=== PATIENT | male | born 1930 | race Caucasian/White ===

== ENCOUNTER 2016-08-18 18:05 | Observation (INO) | payer MEDICARE, BC ==
[2016-08-18] MEDS ORDERED: NS 0.9% 1000 ML* 2,000 ML IV ONE (19:37)
[2016-08-18 20:00] LABS: Hematocrit 40 % (42-52); Hemoglobin 13.1 g/dl (14.0-18.0); Mean Corpuscular HGB Conc 33 g/dl (31-36); Mean Corpuscular Hemoglobin 29 pg (27-31); Mean Corpuscular Volume 87 fL (80-94); Mean Platelet Volume 8 um3 (7.4-10.4); Red Blood Count 4.59 10^6/ul (4.0-5.4); Red Cell Distribution Width 14 % (10.5-15); White Blood Count 13.8 10^3/ul (3.5-10.8)
[2016-08-18 20:05] LABS: Urine Bilirubin Negative (Negative); Urine Glucose Negative (Negative); Urine Nitrite Negative (Negative)
[2016-08-18 20:06] LABS: ALT 18 U/L (7-52); AST 18 U/L (13-39); Albumin 3.5 g/dL (3.2-5.2); Alkaline Phosphatase 65 U/L (34-104); Anion Gap 6 mmol/L (2-11); BUN/Creatinine Ratio 16.5 (8-20); Blood Urea Nitrogen 18 mg/dL (6-24); CO2 Carbon Dioxide 27 mmol/L (22-32); Calcium 8.7 mg/dL (8.6-10.3); Chloride 103 mmol/L (101-111); Creatine Kinase 82 U/L (10-223); EGFR African American 82.9 (>60); EGFR Non-African American 64.4 (>60); Glucose 119 mg/dL (70-100); Potassium 3.7 mmol/L (3.5-5.0); Sodium 136 mmol/L (133-145); Total Protein 6.5 g/dL (6.4-8.9)
[2016-08-18 20:08] LABS: Troponin I 0.02 ng/mL (<0.04)
--- NOTE | 2016-08-18 20:23 | RAD ---
INDICATION: Altered mental status. Headaches. COMPARISON: CT brain November 29, 2014 TECHNIQUE: Noncontrast axial source images were acquired from the skull base to the vertex. FINDINGS: Ventricles/sulci: There is cortical atrophy with compensatory dilatation of the CSF spaces. Brain parenchyma: There is periventricular and subcortical white matter change compatible with chronic ischemia. Intracranial hemorrhage:None. Extra-axial spaces: There are no abnormal extra axial fluid collections or evidence of extra-axial mass. Calvarium: There is no calvarial fracture or other calvarial abnormality. Scalp: There is no evidence of scalp or extracalvarial soft tissue abnormality. Paranasal sinuses/mastoid: There is chronic sinus disease in the right maxillary antrum, unchanged. The remaining visualized paranasal sinuses and the mastoid air cells appear normal. Other: None. IMPRESSION: CORTICAL ATROPHY WITH CHRONIC MICROVASCULAR ISCHEMIC CHANGES. NO ACUTE FINDINGS.
[2016-08-18 20:30] LABS: Alcohol < 10 mg/dL (<10)
--- NOTE | 2016-08-18 20:41 | RAD ---
INDICATION: Short of breath. Cough. Pneumonia COMPARISON: Chest x-ray November 29, 2014 TECHNIQUE: AP seated and lateral views were obtained. FINDINGS: Bones/Soft Tissues: There are no acute bony findings. Cardiomediastinal: The cardiomediastinal silhouette is normal. Lungs: There are no infiltrates. Pleura: There are no pleural effusions. Other: None IMPRESSION: NO ACTIVE DISEASE.
[2016-08-18 22:17] LABS: C Reactive Protein 91.97 mg/L (< 5.00)
--- NOTE | 2016-08-18 22:57 | ED ---
Jacqueline Adair Claudia, scribed for Tono Fernandez MD on 08/18/16 at 1857 . Complex/Multi-Sys Presentation - HPI Summary HPI Summary: 86 year old male presents to the ED with AMS. His son states that he had trouble understanding him earlier today. The pt seemed to be saying words that were jumbled. Pt son denies pt having any previous difficulty with speech but does note he sometimes has some difficulty with memory. Son notes it seems like he is having difficulty findings words. Pt states correct birthdate and current location but is unable to state his PCP and he notes he is usually able to know that. Pt son states he is normally more with it with responding to questions. Pt denies any cough, visual changes, abd pain. Pt does admit to some SOB and pain over his kidneys. Pt son notes that he was shivering earlier. Son is unable to notice any weakness with ambulation since he did not walk today. It is also noted that he is having some difficulty urinating with the need to go. Level 5 caveat- AMS - History Of Current Complaint Chief Complaint: EDAltMentalStatus Hx Obtained From: Patient, Family/Civil Engineering Specialist Onset/Duration: Sudden Onset, Lasting Hours, Still Present Timing: Constant Associated Signs And Symptoms: Positive: Confusion, SOB, Fever, Other - difficulty urinating. Negative: Cough - Allergies/Home Medications Allergies/Adverse Reactions: Allergies Allergy/AdvReac Type Severity Reaction Status Date / Time Hydrocodone Allergy ANXIOUS Verified 08/18/16 19:14 Metoprolol [From Toprol XL] Allergy ANXIOUS Verified 08/18/16 19:14 Amlodipine [From Norvasc] AdvReac Mild anxious Verified 08/18/16 19:14 Home Medications: Home Medications Aspirin [Aspirin 81 MG TAB] 81 mg PO DAILY 08/18/16 [History Confirmed 08/18/16] Fluticasone Propionate (Nasal) [Allergy Nasal [place] 24 Ho] 50 mcg NA 08/18/16 [ History] Potassium Chloride Microencaps [Klor-Con M20] 20 meq PO DAILY 08/18/16 [History Confirmed 08/18/16] PMH/Surg Hx/FS Hx/Imm Hx Previously Healthy: Yes Endocrine/Hematology History: Reports: Hx Diabetes - borderline Cardiovascular History: Reports: Hx Coronary Artery Disease, Hx Hypercholesterolemia, Hx Hypertension, Hx Syncope Denies: Hx Congestive Heart Failure, Hx Pacemaker/ICD GI History: Reports: Hx Diverticulosis, Hx Gastroesophageal Reflux Disease Denies: Other GI Disorders History: Reports: Hx Benign Prostatic Hyperplasia, Hx Kidney Stones Denies: Hx Dialysis, Hx Renal Disease Comment Only: Other Problems/Disorders - prostate ca Musculoskeletal History: Reports: Hx Back Problems - lumbago Sensory History: Reports: Hx Contacts or Glasses Denies: Hx Hearing Aid Opthamlomology History: Reports: Hx Contacts or Glasses Psychiatric History: Denies: Hx Panic Disorder - Cancer History Cancer Type, Location and Year: PROSTATE - Surgical History Surgery Procedure, Year, and Place: melanoma removed left cheek, staple removed hand, tonsillectomy Infectious Disease History: Denies: Traveled Outside the [place] in Last 30 Days - Social History Alcohol Use: None Substance Use Type: Reports: None Smoking Status (MU): Former Smoker Type: Cigarettes Have You Smoked in the Last Year: No Review of Systems Positive: Fever, Chills Eyes: Negative ENT: Negative Cardiovascular: Negative Positive: Shortness Of Breath. Negative: Cough Genitourinary: Negative Musculoskeletal: Negative Skin: Negative Positive: Headache. Negative: Weakness, Slurred Speech Psychological: Normal All Other Systems Reviewed And Are Negative: No Physical Exam - Summary Physical Exam Summary: The patient is well-nourished in no acute distress and in no acute pain. Pallor The skin is warm and dry and skin color reflects adequate perfusion. HEENT: The head is normocephalic and atraumatic. The pupils are equal and reactive. No rhinorrhea . The conjunctivae are clear and without drainage. Mouth reveals moist mucous membranes and the throat is without erythema and exudate. Neck is supple with full range of motion and non-tender. There are no carotid bruits. There is no neck vein distension. Respiratory: Chest is non-tender. Lungs are clear to auscultation and breath sounds are symmetrical and equal.No rales, rhonchi or wheezing. Cardiovascular: Hear is regular rate and rhythm. There is no murmur or rub auscultated. There is no peripheral edema and pulses are symmetrical and equal. Abdomen: The abdomen is soft and non-tender. There are normal bowel sounds heard in all four quadrants and there is no organomegaly palpated. Musculoskeletal: There is no back pain noted. Extremities are non-tender with full range of motion. There is good capillary refill. There is no peripheral edema or calf tenderness elicited. Neurological: Patient is alert and oriented to place. The patient has symmetrical motor strength in all four extremities. Cranial nerves2-12 are grossly intact. Deep tendon reflexes are symmetrical and equal in all four extremities. Heel to dougherty and finger to nose are able produce without difficulty. Negative babinsky. Trouble recalling events. Negative pronator drift in UE sand LE. Psychiatric: The patient has an appropriate affect and does not exhibit any anxiety or depression. Triage Information Reviewed: Yes Vital Signs On Initial Exam: Initial Vitals Temp Pulse Resp BP Pulse Ox 99.4 F 96 18 143/74 98 08/18/16 18:15 08/18/16 18:15 08/18/16 18:15 08/18/16 18:15 08/18/16 18:15 Vital Signs Reviewed: Yes - Lizett Coma Scale Coma Scale Total: 15 Diagnostics - Vital Signs Vital Signs Temp Pulse Resp BP Pulse Ox 08/18/16 18:15 99.4 F 96 18 143/74 98 - Laboratory Lab Results: Lab Results 08/18/16 08/18/16 08/18/16 Range/Units 19:40 19:40 19:40 WBC 13.8 H (3.5-10.8) 10^3/ul RBC 4.59 (4.0-5.4) 10^6/ul Hgb 13.1 L (14.0-18.0) g/dl Hct 40 L (42-52) % MCV 87 (80-94) fL MCH 29 (27-31) pg MCHC 33 (31-36) g/dl RDW 14 (10.5-15) % Plt Count 168 (150-450) 10^3/ul MPV 8 (7.4-10.4) um3 Neut % (Auto) 81.0 (38-83) % Lymph % (Auto) 8.2 L (25-47) % [place] % (Auto) 9.7 H (1-9) % Eos % (Auto) 0.6 (0-6) % Baso % (Auto) 0.5 (0-2) % Absolute Neuts (auto) 11.2 H (1.5-7.7) 10^3/ul Absolute Lymphs (auto) 1.1 (1.0-4.8) 10^3/ul Absolute Monos (auto) 1.3 H (0-0.8) 10^3/ul Absolute Eos (auto) 0.1 (0-0.6) 10^3/ul Absolute Basos (auto) 0.1 (0-0.2) 10^3/ul Absolute Nucleated RBC 0.01 10^3/ul Nucleated RBC % 0.1 INR (Anticoag Therapy) (0.89-1.11) Sodium 136 (133-145) mmol/L Potassium 3.7 (3.5-5.0) mmol/L Chloride 103 (101-111) mmol/L Carbon Dioxide 27 (22-32) mmol/L Anion Gap 6 (2-11) mmol/L BUN 18 (6-24) mg/dL Creatinine 1.09 (0.67-1.17) mg/dL Est GFR ( Amer) 82.9 (>60) Est GFR (Non-Af Amer) 64.4 (>60) BUN/Creatinine Ratio 16.5 (8-20) Glucose 119 H (70-100) mg/dL Lactic Acid 1.0 (0.5-2.0) mmol/L Calcium 8.7 (8.6-10.3) mg/dL Total Bilirubin 1.10 H (0.2-1.0) mg/dL AST 18 (13-39) U/L ALT 18 (7-52) U/L Alkaline Phosphatase 65 (34-104) U/L Total Creatine Kinase 82 (10-223) U/L Troponin I 0.02 (<0.04) ng/mL C-Reactive Protein 91.97 H (< 5.00) mg/L Total Protein 6.5 (6.4-8.9) g/dL Albumin 3.5 (3.2-5.2) g/dL Globulin 3.0 (2-4) g/dL Albumin/Globulin Ratio 1.2 (1-3) Urine Color Urine Appearance Urine pH (5-9) Ur Specific [place] (1.010-1.030) Urine Protein (Negative) Urine Ketones (Negative) Urine Blood (Negative) Urine Nitrate (Negative) Urine Bilirubin (Negative) Urine Urobilinogen (Negative) Ur Leukocyte Esterase (Negative) Urine Glucose (Negative) Urine Ascorbic Acid (Negative) Serum Alcohol < 10 (<10) mg/dL 08/18/16 08/18/16 Range/Units 19:40 19:50 WBC (3.5-10.8) 10^3/ul RBC (4.0-5.4) 10^6/ul Hgb (14.0-18.0) g/dl Hct (42-52) % MCV (80-94) fL MCH (27-31) pg MCHC (31-36) g/dl RDW (10.5-15) % Plt Count (150-450) 10^3/ul MPV (7.4-10.4) um3 Neut % (Auto) (38-83) % Lymph % (Auto) (25-47) % [place] % (Auto) (1-9) % Eos % (Auto) (0-6) % Baso % (Auto) (0-2) % Absolute Neuts (auto) (1.5-7.7) 10^3/ul Absolute Lymphs (auto) (1.0-4.8) 10^3/ul Absolute Monos (auto) (0-0.8) 10^3/ul Absolute Eos (auto) (0-0.6) 10^3/ul Absolute Basos (auto) (0-0.2) 10^3/ul Absolute Nucleated RBC 10^3/ul Nucleated RBC % INR (Anticoag Therapy) 1.11 (0.89-1.11) Sodium (133-145) mmol/L Potassium (3.5-5.0) mmol/L Chloride (101-111) mmol/L Carbon Dioxide (22-32) mmol/L Anion Gap (2-11) mmol/L BUN (6-24) mg/dL Creatinine (0.67-1.17) mg/dL Est GFR ( Amer) (>60) Est GFR (Non-Af Amer) (>60) BUN/Creatinine Ratio (8-20) Glucose (70-100) mg/dL Lactic Acid (0.5-2.0) mmol/L Calcium (8.6-10.3) mg/dL Total Bilirubin (0.2-1.0) mg/dL AST (13-39) U/L ALT (7-52) U/L Alkaline Phosphatase (34-104) U/L Total Creatine Kinase (10-223) U/L Troponin I (<0.04) ng/mL C-Reactive Protein (< 5.00) mg/L Total Protein (6.4-8.9) g/dL Albumin (3.2-5.2) g/dL Globulin (2-4) g/dL Albumin/Globulin Ratio (1-3) Urine Color Yellow Urine Appearance Clear Urine pH 7.0 (5-9) Ur Specific [place] 1.016 (1.010-1.030) Urine Protein Negative (Negative) Urine Ketones 2+ H (Negative) Urine Blood Negative (Negative) Urine Nitrate Negative (Negative) Urine Bilirubin Negative (Negative) Urine Urobilinogen Negative (Negative) Ur Leukocyte Esterase Negative (Negative) Urine Glucose Negative (Negative) Urine Ascorbic Acid * H (Negative) Serum Alcohol (<10) mg/dL Result Diagrams: 08/18/16 19:40 08/18/16 19:40 Lab Statement: Any lab studies that have been ordered have been reviewed, and results considered in the medical decision making process. - Radiology CXR Xray Interpretation: No Acute Changes - NO ACTIVE DISEASE Radiology Interpretation Completed By: Radiologist - CT BRAIN CT CT Interpretation: No Acute Changes - CORTICAL ATROPHY WITH CHRONIC MICROVASCUALR ISCHEMIC CHANGES. NO ACUTE FINDINGS CT Interpretation Completed By: Radiologist [employer] - NIH Scale Level of Consciousness: Alert/Keenly Responsive Ask Patient the Month and His/Her Age: Both Correct Ask Pt to Open/Close Eyes and Fiber Optic Assembly Worker/Release Non-Paretic Hand: Both Correctly Best Gaze (Only Horizontal Eye Movement): Normal Visual Field Testing: No Visual Loss Facial Paresis-Pt to Smile & Close Eyes or Grimace Symmetry: Normal/Symmetrical Motor Function - Right Arm: No Drift-Holds 10 Seconds Motor Function - Left Arm: No Drift-Holds 10 Seconds Motor Function - Right Leg: No Drift-Holds 10 Seconds Motor Function - Left Leg: No Drift-Holds 10 Seconds Limb Ataxia-Must be out of Proportion to Weakness Present: Absent Sensory (Use Pinprick to Test Arms/Legs/Trunk/Face): Normal Best Language (Describe Picture, Name Items): No Aphasia Dysarthria (Read Several Words): Slurs Some Words Extinction and Inattention: No Abnormality Total Score: 1 Re-Evaluation - Re-Evaluation 1 Re-Evaluation Time: 21:10 Comment: Lab results and imaging are discussed with pt. Admission for observation and MRI in the morning is discussed with pt whom is agreeable with the plan. Complex Multi-Symp Course/Dx Assessment/Plan: PT PRESENTS WITH DIFFICULTY ARTICULATING, CONFUSION AND CHILLS , CONCERNS FOR AL, PNEUMONIA, UTI AND TIA. PT WAS HYDRATED AND FELT BETER. REVIEWED OLD RECORDS. WILL ADMIT PT FOR FURTHER WORK-UP. - Diagnoses Differential Diagnoses/HQI/PQRI: CVA, Metabolic Abnormality, Urinary Tract Infection, Other - pneumonia, tia, dehydration Provider Diagnoses: TIA (transient ischemic attack), Altered mental status - Physician Notifications Discussed Care Of Patient With: Discussed care of pt with Dr. Underwood whom recomends admit for MRI in the am Time Discussed With Above Provider: 21:06 Instructed by Provider To: Admit As Observation Discharge - Discharge Plan Condition: Stable Disposition: [facility] The documentation as recorded by the Jacqueline kilpatrick Claudia accurately reflects the service I personally performed and the decisions made by me, Tono Fernandez MD.
[2016-08-19] MEDS: NS 0.9% 1000 ML* 1,000 ML IV SCH ×2 (00:17→08:19)
[2016-08-19 00:42] LABS: Magnesium 1.7 mg/dL (1.9-2.7)
[2016-08-19 00:53] LABS: TSH (Thyroid Stimulating Horm) 2.17 mcIU/mL (0.34-5.60)
--- NOTE | 2016-08-19 02:25 | HP ---
HOSPITAL MEDICINE HISTORY AND PHYSICAL: DATE OF ADMISSION: 08/18/16 PRIMARY CARE PHYSICIAN: Dr. Rich. ATTENDING PHYSICIAN: Dr. Alex Underwood* (dictation provided by Toya Wong NP). CHIEF COMPLAINT: Confusion and difficulty finding words. HISTORY OF PRESENT ILLNESS: Mr. Sanchez is an 86-year-old male with a past medical history of coronary artery disease, hyperlipidemia, hypertension, atrial fibrillation, GI bleed in 2013 and history of diabetes, currently controlled with diet who presented to the hospital today with concern for 2 to 3 days of feeling unwell and then being confused and having word finding difficulties today. Mr. Sanchez states that he had 2 to 3 days where he just did not feel well. He has had a difficulty characterizing how he was feeling for me. He does endorse arthralgias and myalgias. He states he has chills at night. He had no cough. He did not think he actually had a fever. He has no chest pain, no shortness of breath. He has no nausea or abdominal pain. He has had some mild constipation. He has been urinating normally. His grew concerned about him today because he "was not acting like himself." She called the son who came over to see him. The son, who is at the bedside [facility], could not understand the patient's speech. Patient was having difficulty finding words and saying words incorrectly. Therefore he was brought to the emergency room. In the emergency room, Mr. Sanchez continues to have some confusion, though it seems to have improved. He is able to speak clearly, but he does have difficulty finding words and trails off during conversation frequently. He appears to not have any focal neurological deficits. His labs show an elevated white blood cell count of 13.8. His CRP is elevated at 91.97. PAST MEDICAL HISTORY: 1. Coronary artery disease. 2. Hyperlipidemia. 3. Hypertension. 4. Atrial fibrillation, not on anticoagulation. 5. GI bleed in 2013. 6. History of diabetes. Last HgbA1c 2 years ago 6.7. 7. BPH. 8. Renal stones. MEDICATIONS: 1. Calcium carbonate with vitamin D 660 mg p.o. b.i.d. 2. Cranberry with vitamin C and vitamin E 1 cap p.o. daily. 3. Digestive enzyme 1 cap p.o. with meals. 4. Fluticasone propionate 50 mcg nasally. 5. Prostate Health 1 cap p.o. daily. 6. Multivitamin with mineral 1 tab p.o. b.i.d. 7. Nitroglycerin p.r.n. 8. Nutritional Cardio Complete 1 cap p.o. b.i.d. 9. Bee-3 fatty acid 1 cap p.o. b.i.d. 10. Ailyn-Q 1 cap p.o. daily. 11. Selenium 100 mcg p.o. daily. 12. Aspirin 81 mg p.o. daily. 13. Atorvastatin 10 mg p.o. q.p.m. 14. Finasteride 5 mg p.o. daily. 15. Metoprolol succinate 12.5 mg p.o. daily. 16. Omeprazole 20 mg p.o. daily. 17. Potassium chloride 20 mEq p.o. daily. 18. Tamsulosin 0.4 mg p.o. b.i.d. ALLERGIES: Stated to HYDROCODONE, METOPROLOL and AMLODIPINE, although the patient is currently on metoprolol. Allergy to METOPROLOL is listed as anxiety. FAMILY HISTORY: Unobtainable tonight. SOCIAL HISTORY: There is report that the patient was a smoker and he quit 40 years ago and he smoked for about 10 years. 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 REVIEW OF SYSTEMS: A 14-point review of systems was completed with Mr. Sanchez and all those not mentioned above were negative. PHYSICAL EXAMINATION GENERAL: Mr. Sanchez is sitting up in the bed, he is in no acute distress. VITAL SIGNS: Temperature 99.4, heart rate 83, respiratory rate 14, O2 saturation 100% on room air, blood pressure 157/82. LUNGS: Clear to auscultation bilaterally with no accessory muscle use and good aeration. HEART: S1 and S2. No murmur, rub, or gallop, and regular. ABDOMEN: Soft and nontender with bowel sounds positive x4. EXTREMITIES: No cyanosis or edema. NEURO: He is alert. He is oriented x3. He moves all extremities equally. There is no pronator drift. Has good sensation throughout all 4 extremities. Extraocular movements are intact. Face is symmetrical. His speech is clear but slow. He pauses and is unable to come up with words. He answers appropriately at times but will when unable to find a word he will repeat phrases. SKIN: Intact. DIAGNOSTIC STUDIES/LAB DATA: Sodium 136, potassium 3.7, chloride 103, serum bicarbonate 27, BUN 18, creatinine 1.09, glucose 119, CRP 91.97. WBC 13.8, hemoglobin 13.1, hematocrit 40, platelet count 168. Urine shows no evidence of infection. Toxicology screening shows negative alcohol level. Chest x-rays shows no acute process. CT of brain shows no acute process. ASSESSMENT: Mr. Sanchez is an 86-year-old male with a past medical history of coronary artery disease, hypertension, hyperlipidemia, and atrial fibrillation, not on anticoagulation who presents to the hospital with concern for confusion, difficulty word finding, and altered speech. In the emergency room, his symptoms have improved though he continues to have difficulty with word finding. Our plans are for observation in the hospital for the following. 1. Difficulty with word finding and altered speech pattern: The patient appears to have an acute viral illness. His white blood cell count is elevated. His CRP is elevated. He describes 2 to 3 days of not feeling well. However, his family states he was acting odd and his son very clearly notes that the patient was having difficulty with word finding and perhaps having slurred speech. This seems to have improved in the emergency room. Although I think that perhaps this is all related to acute viral illness in an elderly gentleman with baseline cortical atrophy and chronic microvascular ischemic changes which had been noted on the CT of the brain tonight, I think that he warrants investigation for a transient ischemic attack. The patient has had the CT brain. He will have an MRI of the brain and transthoracic echocardiogram, telemetry monitoring and and neurological checks q.4 hours. If the MRI of the brain is positive, Neurology will be consulted. Again, my high suspicion is that this is related to viral illness, but stroke is high on the differential based on his abnormal speech and therefore I think he deserves further workup. 2. Viral illness: The patient has no infiltrative process noted on the chest x - ray. He has no evidence of urinary tract infection. I suspected that his symptoms are related to a viral illness. He has been hydrated in the emergency room. We will continue with IV hydration overnight. We will recheck all his labs tomorrow. He has had blood cultures. His lactic acid is normal. Plan to monitor closely and if he develops any sign of more focal infection or bacterial infection, antibiotics can be initiated at that point. 3. Benign prostatic hypertrophy: Continue tamsulosin. 4. History of hypertension: Continue low dose metoprolol. 5. DVT prophylaxis with heparin subcu. 6. Disposition to telemetry floor. TIME SPENT: Approximately 60 minutes were spent on the admission of this patient, more than half the time was spent with the patient at the bedside reviewing the events leading up to this hospitalization, performing the physical examination, and reviewing the plan of care. TOYA WONG NP CC: Dr. Rich* [id number]/[facility] #: [id number] RUBEN
[2016-08-19 05:49] LABS: Hematocrit 38 % (42-52); Hemoglobin 12.4 g/dl (14.0-18.0); Mean Corpuscular HGB Conc 33 g/dl (31-36); Mean Corpuscular Hemoglobin 28 pg (27-31); Mean Corpuscular Volume 87 fL (80-94); Mean Platelet Volume 8 um3 (7.4-10.4); Red Blood Count 4.35 10^6/ul (4.0-5.4); Red Cell Distribution Width 14 % (10.5-15); White Blood Count 13.8 10^3/ul (3.5-10.8)
[2016-08-19] MEDS ORDERED: Heparin VIAL(*) 5000 UNITS/ML VIAL (FIVE THOUSAND) SUBCUT SCH (06:00)
[2016-08-19 06:04] LABS: BUN/Creatinine Ratio 15.7 (8-20); EGFR African American 89.5 (>60); EGFR Non-African American 69.6 (>60); Potassium 3.7 mmol/L (3.5-5.0)
[2016-08-19] MEDS ORDERED: Potassium Chlor TAB* 20 MEQ TAB.ER PO SCH (09:00)
[2016-08-19] MEDS ORDERED: Metoprolol Succinate XL TAB* 25 MG PO SCH (09:00)
[2016-08-19] MEDS ORDERED: Omeprazole CAP* 20 MG PO SCH (09:00)
[2016-08-19] MEDS ORDERED: Tamsulosin CAP* 0.4 MG PO SCH (09:00)
[2016-08-19] MEDS ORDERED: Aspirin EC Low Dose* 81 MG TAB.EC PO SCH (09:00)
[2016-08-19] MEDS ORDERED: Finasteride TAB* 5 MG PO SCH (09:00)
--- NOTE | 2016-08-19 11:09 | ECHO ---
Patient: KAMRAN MART [facility] Rec#: [id number] : 1930 Date: 08/19/2016 Age: 86y Height: 170.2 cm / 67.0 in Weight: 86.2 kg / 190.0 lbs Sex: M BSA: 2 Room#: [facility] Admit Date#: 08/18/2016 Type: Inpatient Referring: Toya Wong NP Reading: Maine Collado MD Signal Maintenance Technician: Malia Montgomery RN RDCS CC: Mitch Rich MD Transthoracic Echocardiogram Indication: TIA BP: 143/66 HR: 79 Rhythm: NSR Findings History: CAD, HTN, HLD, A. fib, GI bleed, DM Technical Comments: The study quality is fair. Completed at 1050. Left Ventricle: The left ventricular chamber size is normal. Mild to moderate concentric left ventricular hypertrophy is observed. Global left ventricular wall motion and contractility are within normal limits. There is normal left ventricular systolic function. The estimated ejection fraction is 55-60%. Abnormal left ventricular diastolic filling is observed, consistent with impaired relaxation. Left Atrium: The left atrium is slightly dilated. Right Ventricle: The right ventricular chamber size and systolic function are within normal limits. Right Atrium: The right atrium is slightly dilated. There is evidence of an atrial septal aneurysm. Aortic Valve: The aortic valve is trileaflet. The aortic valve leaflets are mildly thickened. There is aortic annular calcification. There is no evidence of aortic regurgitation. There is no evidence of aortic stenosis. Mitral Valve: There is mitral annular calcification. The mitral valve leaflets are mildly thickened. There is mild mitral regurgitation. There is no evidence of mitral stenosis. Tricuspid Valve: The tricuspid valve leaflets are normal. There is mild tricuspid regurgitation. There is evidence of moderate pulmonary hypertension. There is no tricuspid stenosis. Pulmonic Valve: The pulmonic valve appears normal. There is a trace pulmonic regurgitation. There is no pulmonic stenosis. Pericardium: There is no significant pericardial effusion. A pericardial fat pad is visualized. Aorta: There is mild dilatation of the ascending aorta. The aortic arch is not well visualized. The aortic root is normal in size. Pulmonary Artery: The main pulmonary artery appears normal. Venous: The inferior vena cava is dilated. There is an approximate 50% respiratory change in the inferior vena cava dimension. Summary: There are changes noted when compared to the previous study done on 11/30/2014, PHTN is now moderate instead of mild then. Mildly dilated ascending aorta is new instead of no comment then. Conclusions Mild to moderate concentric left ventricular hypertrophy is observed. There is normal left ventricular systolic function. The estimated ejection fraction is 55-60%. The left atrium is slightly dilated. The right atrium is slightly dilated. There is mild mitral regurgitation. There is mild tricuspid regurgitation. There is a trace pulmonic regurgitation. A pericardial fat pad is visualized. There is no significant pericardial effusion. There is mild dilatation of the ascending aorta. There is evidence of moderate pulmonary hypertension. Measurements Name Value Normal Range RVDdMajor (2D) 4.1 cm (2.2 - 4.4) RAd ISD 4CH 5 cm (3.4 - 4.9) RA (A4C)W 4.3 cm (2.9 - 4.6) IVSd (2D) 1.3 cm (0.6 - 1) LVPWd (2D) 1.2 cm (0.6 - 1) LVIDd (2D) 4.3 cm (3.6 - 5.4) LVIDs (2D) 2.7 cm - LV FS (2D) 36 % (25 - 45) Aortic Annulus 2.2 cm (1.4 - 2.6) Ao root diameter (2D) 3.4 cm (2.1 - 3.5) Ascending Ao 3.5 cm (2.1 - 3.4) LA dimension (AP) 2D 3.9 cm (2.3 - 3.8) LAd ISD 4CH 4.9 cm (2.9 - 5.3) LA ISD 4CH W 3.9 cm (2.5 - 4.5) Name Value Normal Range LA ESV SP 4CH (A/L) 51 ml - LA ESV SP 2CH (A/L) 69 ml - LA ESV BP (A/L) 62 ml - LA ESV BP (A/L) index 31 ml/m2 - LA ESV SP 4CH (MOD) 48 ml - LA ESV SP 2CH (MOD) 63 ml - Name Value Normal Range MV E-wave Vmax 1.1 m/sec - MV deceleration time 219 msec - MV A-wave Vmax 1.6 m/sec - MV E:A ratio 0.7 ratio - LV septal e' Vmax 0.06 m/sec - LV lateral e' Vmax 0.06 m/sec - LV E:e' septal ratio 18.3 ratio - LV E:e' lateral ratio 18.3 ratio - Name Value Normal Range AV Vmax 1.7 m/sec - AV VTI 35.6 cm - AV peak gradient 11 mmHg - AV mean gradient 7 mmHg - LVOT Vmax 1 m/sec - LVOT VTI 20.6 cm - LVOT peak gradient 4 mmHg - LVOT mean gradient 2 mmHg - Name Value Normal Range MV Vmax 1.4 m/sec - MV VTI 36 cm - MV peak gradient 7.4 mmHg - MV mean gradient 3.5 mmHg - MV PHT 58 msec - MVA (PHT) 3.8 cm2 - Name Value Normal Range TR Vmax 3.1 m/sec - TR peak gradient 38 mmHg - RAP 15 mmHg - RVSP 53 mmHg - IVC diameter 2.2 cm - Name Value Normal Range PV Vmax 0.89 m/sec -
--- NOTE | 2016-08-19 11:34 | RAD ---
Indication: Stroke. Sagittal and axial T1, axial T2, FLAIR, diffusion and susceptibility weighted images of the brain were obtained. Ventricular structures are midline. No midline shift is noted. Central and cortical atrophy is noted. There is no evidence of intracranial mass or hemorrhage. No other high or low signal lesions are identified. Mastoid air cells and paranasal sinuses are otherwise unremarkable. Diffusion-weighted images demonstrates no restriction of diffusion. FLAIR images demonstrates periventricular signal abnormalities consistent with chronic ischemic White matter change. Brainstem and posterior fossa are otherwise unremarkable. Paranasal sinuses demonstrates mucous retention cyst in the floor of the right maxillary sinus. Mastoid air cells are unremarkable. IMPRESSION: CHRONIC ISCHEMIC WHITE CHANGE. NO ACUTE CHANGES OR RESTRICTION OF DIFFUSION IS IDENTIFIED. MUCOUS RETENTION CYST RIGHT MAXILLARY SINUS. AGE-RELATED ATROPHY.
[2016-08-19 12:09] VITALS: BP 136/71
--- NOTE | 2016-08-19 12:30 | PN ---
Subjective Date of Service: 08/19/16 Interval History: Patient seen and examined at bedside. Denies fever, chills, lightheadedness, dizziness, shortness of breath, chest discomfort, N/V/D or weakness. Feels that his speech is at baseline. Tele: Sinus rhythm with 1 degree block, rate 80's. Family History: Unchanged from Admission Social History: Unchanged from Admission Past Medical History: Unchanged from Admission Objective Active Medications: Aspirin (Aspirin Ec Low Dose*) 81 mg PO DAILY [facility] Atorvastatin Calcium (Lipitor*) 10 mg PO QPM [facility] Finasteride (Proscar Tab*) 5 mg PO DAILY [facility] Heparin Sodium (Porcine) (Heparin Vial(*)) 5,000 units SUBCUT Q8HR [facility] Sodium Chloride (Ns 0.9% 1000 Ml*) 1,000 mls @ 125 mls/hr IV PER RATE [facility] Metoprolol Succinate (Toprol Xl Tab*) 12.5 mg PO DAILY [facility] Omeprazole (Prilosec Cap*) 20 mg PO DAILY [facility] Potassium Chloride (Klor Con Er Tab*) 20 meq PO DAILY [facility] Tamsulosin HCl (Flomax Cap*) 0.4 mg PO BID [facility] Vital Signs 08/18/16 08/18/16 08/19/16 22:00 22:36 03:56 Temperature 99.2 F 98.5 F Pulse Rate 95 84 Respiratory 14 18 16 Rate Blood Pressure 147/77 168/80 143/66 (mmHg) O2 Sat by Pulse 100 96 Oximetry 08/19/16 08/19/16 08/19/16 06:39 07:31 12:00 Temperature 98.5 F 99.0 F Pulse Rate 76 76 Respiratory 16 18 20 Rate Blood Pressure 121/67 136/71 (mmHg) O2 Sat by Pulse 100 98 Oximetry Oxygen Devices in Use Now: None Appearance: NAD, laying in bed Eyes: No Scleral Icterus Respiratory: Symmetrical Chest Expansion and Respiratory Effort, Clear to Auscultation Cardiovascular: NL Sounds; No Murmurs; No JVD, RRR Abdominal: NL Sounds; No Tenderness; No Distention Extremities: No Edema Skin: No Rash or Ulcers Neurological: Alert and Oriented x 3, NL Muscle Strength and Tone Lines/Tubes/Other Access: Clean, Dry and Intact Peripheral IV - site benign Nutrition: Taking PO's Result Diagrams: 08/19/16 05:35 08/19/16 05:35 Additional Lab and Data: Assess/Plan/Problems-Billing Assessment: Mr. Sanchez is an 86 yo male with PMH significant for CAD, HLD, HTN, Afib, DM and BPH who presented to the emergency room with concern for not feelilng well for a few days and having confusion and word finding difficulties. - Patient Problems (1) Word finding difficulty Code(s): R47.89 - OTHER SPEECH DISTURBANCES SNOMED Code(s): 682855050 Comment: - Suspect this is related to his viral illness and not a TIV or CVA. - Per Pt his speech is at baseline and is is no longer having difficulty finding words. - CT brain - baseline cortical atrophy and chronic microvasculr ischemic changes - Echo - mild concentric LVH, EF 55-60%, moderate pulmonary HTN. - MRI brain - chronic ischemic white change. No acute changes. (2) Viral illness Comment: - No signs of UTI or active disease on chest xray - No need for ABX - Supportive care (3) Type 2 diabetes mellitus Comment: - Last 08/2014 - HgA1C 6.7 - Not currentley on medications (4) History of BPH Code(s): Z87.438 - PERSONAL HISTORY OF OTHER DISEASES OF MALE GENITAL ORGANS SNOMED Code(s): 779497107 Comment: - Continue tamsulosin and finasteride (5) History of hypertension Code(s): Z86.79 - PERSONAL HISTORY OF OTHER DISEASES OF THE CIRCULATORY SYSTEM SNOMED Code(s): 436468284 Comment: - Continue metoprolol (6) DVT prophylaxis Code(s): TOU3825 - SNOMED Code(s): 074572838 (7) Patient is full code Code(s): Z78.9 - OTHER SPECIFIED HEALTH STATUS SNOMED Code(s): 469968828 Status and Disposition: OBV. Stable for discharge to home.
[2016-08-19] MEDS ORDERED: Atorvastatin* 10 MG TAB PO SCH (18:00)
--- NOTE | 2016-08-19 21:02 | PN ---
Progress Note - Progress Note Note: One blood culture positive resembling staph but staph aureus neg. Likely contaminant.
--- NOTE | 2016-08-20 08:31 | DS ---
DISCHARGE SUMMARY: DATE OF ADMISSION: 08/18/16 DATE OF DISCHARGE: 08/19/16 ATTENDING PHYSICIAN: Zander Carrillo MD* (dictated by Chip Alvarez NP) PRIMARY CARE PROVIDER: Mithc Rich MD PRIMARY DIAGNOSES: 1. Viral illness. 2. Difficulty with word finding and altered speech pattern, resolved. SECONDARY DIAGNOSES: 1. Benign prostatic hyperplasia. 2. Hypertension. 3. Coronary artery disease. 4. Hyperlipidemia. STUDIES WHILE IN THE HOSPITAL: 1. Brain CT on 08/18/16. Radiologist's impression: Cortical atrophy with chronic microvascular ischemic changes. No acute findings. 2. Chest x-ray from 08/18/16. Radiologist's impression: No active disease. 3. Transthoracic echocardiogram on 08/19/16. Chef Manager's conclusion: Mild- to- moderate concentric left ventricular hypertrophy is observed. There is normal left ventricular systolic function. The estimated ejection fraction is 55% to 60%. The left atrium is slightly dilated. The right atrium is slightly dilated. There is mild mitral regurgitation. There is mild tricuspid regurgitation. There is trace pulmonic regurgitation. A pericardial fat pad is visualized. There is no significant pericardial effusion. There is mild dilation of the ascending aorta. There is evidence of moderate pulmonary hypertension. 4. Brain MRI from 08/19/16. Radiologist's impression: Chronic ischemic white change. No acute changes or restriction of diffusion is identified. Mucous retention cyst, right maxillary sinus. Age related atrophy. DISCHARGE MEDICATIONS: Continued home medications: 1. Potassium chloride 20 mEq oral daily. 2. Aspirin 81 mg oral daily. 3. Probiotic 1 capsule oral daily. 4. Digestive enzymes 1 capsule oral with meals. 5. Cranberry/vitamin C/vitamin E 1 capsule oral daily. 6. Calcium carbonate/vitamin D 660 mg oral twice daily. 7. Atorvastatin 10 mg oral daily every evening. 8. Prostate Health 1 capsule oral daily 9. Metoprolol succinate 12.5 mg oral daily. 10. Finasteride 5 mg oral daily. 11. Omeprazole 20 mg oral daily. 12. [place]bago-3 fatty acid 1 capsule oral twice daily. 13. Nutritional supplement 1 capsule oral twice daily. 14. Nitroglycerin 0.4 mg subinguinal every 5 minutes as needed for chest pain. 15. Multivitamin with minerals 1 tablet oral twice daily. 16. Tamsulosin 0.4 mg oral twice daily. 17. Selenium 100 mcg oral daily. HISTORY OF PRESENT ILLNESS/HOSPITAL COURSE: Mr. Sanchez is an 86-year-old male with a past medical history significant for coronary artery disease, hyperlipidemia, hypertension, atrial fibrillation, and diabetes mellitus that is diet controlled who presented to the hospital with concerns of 2 to 3 days of not feeling well and having confusion and word-finding difficulties. The patient endorsed arthralgias and myalgias. He had also reported chills at night. He denied cough or fever, chest pain, shortness of breath, nausea, or abdominal pain. He also reported some mild constipation. He denied urinary symptoms. The patient's was concerned and felt that the patient was not acting his normal self, so she called her son to come over. When the son presented, he could not understand what his father was saying. The patient was having difficulty findings words and was saying words incorrectly. Therefore, he was brought to the emergency room for further evaluation of his symptoms. While in the emergency room, the patient continued to have some confusion that had improved. He was able to speak clearly, but was having difficulty findings words and trailed off during the conversation. He had no focal neurological deficits. The patient's labs were remarkable for an elevated white blood cell count of 13.8, a CRP of 91.97. The patient had a brain CT that showed no acute findings. Hospice were asked to evaluate the patient for admission. While in the hospital, the patient was evaluated for possible TIA. The patient was monitored on telemetry with no significant findings. He had a transthoracic echocardiogram that was within normal limits. The patient had no signs of focal neurological deficits. The patient had an MRI of his brain with no acute findings. It was felt that the patient's symptoms were related to a viral illness. The patient had a chest x-ray showing no signs of an infection. He remained afebrile during his stay. His white count remained the same at 13.8. Mr. Sanchez's speech was back at his baseline, per him. He was not having trouble finding words. Mr. Sanchez is stable for discharge to home today. Vital signs are as follows: Temperature 99.0, heart rate 76, respiratory rate 20, O2 sat 98% on room air, and blood pressure 136/71. DISCHARGE PLAN: Mr. Sanchez will be discharged to home. Activity as tolerated. He should be on heart healthy, consistent carbohydrate diet. As far as the patient's difficulty with speech, this has resolved. I suspect the patient has a viral illness. He has been encouraged to drink fluids. The patient has a followup appointment with his primary care provider, Dr. Rich, on August 24, at 12:50 p.m. The patient will resume all his normal home medications. The patient has been asked to return to the emergency room for chest pain; shortness of breath; or signs of a stroke such as facial dropping, one-sided weakness, or difficulty with his speech. This is a summarized report of a complex medical history and hospital stay. For further details, please see the entire medical record. TIME SPENT: Time for this discharge was 50 minutes and greater than half of that was spent [id number] with the patient, discussing discharge plans and instructions. CONDITION ON DISCHARGE: Stable. CHIP FUENTES NP CC: Mitch Rich MD* [id number]/[facility] #: [id number] RUBEN
== END 2016-08-19 13:40 | disposition home or self-care (01) ==
LOC: ED 18:05 → MEDTELE 21:48
PROVIDERS: ADMIT Internal Medicine; ATTEND Hospitalist
DX: B34.9 Viral infection, unspecified (principal); R47.89 Other speech disturbances; N40.0 Benign prostatic hyperplasia without lower urinary tract symptoms; I25.10 Atherosclerotic heart disease of native coronary artery without angina pectoris; I10 Essential (primary) hypertension; E78.5 Hyperlipidemia, unspecified; I48.91 Unspecified atrial fibrillation; R06.02 Shortness of breath; I51.7 Cardiomegaly; E11.9 Type 2 diabetes mellitus without complications; Z79.82 Long term (current) use of aspirin; Z79.899 Other long term (current) drug therapy; Z88.8 Allergy status to other drugs, medicaments and biological substances
CPT/HCPCS: 36415; 70450; 70551; 71020; 80048; 80053; 80320; 81003; 82550; 83605; 83735; 84443; 84484; 85025; 85610; 86140; 87040; 87150; 87205; 93306; 96360; 96372; 99284; A9270-GY; G0378; G0480; J1644

== ENCOUNTER 2017-02-02 05:17 | Observation (INO) | payer MEDICARE, OTHER ==
[2017-02-02] MEDS ORDERED: Piperacillin/Tazobac ADVAN(*) 3.375 GM in NS 0.9% 100 ML* 100 ML IVPB ONE (07:24)
[2017-02-02 07:40] LABS: Hematocrit 40 % (42-52); Mean Corpuscular HGB Conc 33 g/dl (31-36); Mean Corpuscular Hemoglobin 29 pg (27-31); Mean Corpuscular Volume 88 fL (80-94); Mean Platelet Volume 8 um3 (7.4-10.4); Red Cell Distribution Width 15 % (10.5-15); White Blood Count 7.7 10^3/ul (3.5-10.8)
[2017-02-02 07:59] LABS: C Reactive Protein 97.92 mg/L (< 5.00); Calcium 9.3 mg/dL (8.6-10.3); EGFR African American 87.5 (>60); Globulin 3.2 g/dL (2-4); Potassium 4.2 mmol/L (3.5-5.0); Total Bilirubin 0.5 mg/dL (0.2-1.0); Total Protein 7.2 g/dL (6.4-8.9)
[2017-02-02 09:41] LABS: Urine Bilirubin Negative (Negative); Urine Glucose Negative (Negative); Urine Nitrite Negative (Negative)
[2017-02-02] MEDS ORDERED: Al Hydrox/Mg Hydrox/Simet LIQ* 30 ML UDC PO PRN (10:38)
[2017-02-02] MEDS ORDERED: Acetaminophen TAB* 325 MG PO PRN (10:38)
[2017-02-02] MEDS ORDERED: Fluticasone NASAL SPRAY 50MCG* 16 gm SPRAY BTL BOTH NARES PRN (10:48)
[2017-02-02] MEDS: Piperacillin/Tazobac ADVAN(*) 3.375 GM in NS 0.9% 100 ML* 100 ML IVPB SCH ×2 (11:41→19:33)
--- NOTE | 2017-02-02 13:02 | RAD ---
INDICATION: Left hand swelling evaluate for abscess. COMPARISON: There are no prior studies available for comparison. TECHNIQUE: Contiguous axial sections were obtained of the left hand.. Images were reconstructed in the sagittal and coronal planes. FINDINGS: There is diffuse soft tissue swelling throughout the hand which is most prominent in dorsal to the metacarpal bones. No focal fluid collection or abscess is seen on this noncontrast study. There is moderate to severe osteoarthritic change in the first carpal metacarpal joint and mild to moderate osteoarthritic change in the proximal and distal interphalangeal joints. 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 IMPRESSION: 1. DIFFUSE SOFT TISSUE SWELLING, NO ABSCESS IS SEEN ON THIS NONCONTRAST STUDY. 2. OSTEOARTHRITIC CHANGE DESCRIBED. 3. 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
[2017-02-02] MEDS: Heparin VIAL(*) 5000 UNITS/ML VIAL (FIVE THOUSAND) SUBCUT SCH ×2 (15:01→22:00)
[2017-02-02] MEDS ORDERED: hydrALAZINE IV* 20 MG/ML VIAL IV SLOW PU PRN (16:06)
[2017-02-02] MEDS ORDERED: Atorvastatin* 10 MG TAB PO SCH (18:00)
--- NOTE | 2017-02-02 18:48 | ED ---
Andrés Adair Angela, scribed for Mitch Liz MD on 02/02/17 at 0719 . Upper Extremity Pain - HPI Summary HPI Summary: This pt is a 86 y/o male presenting to [facility] c/o redness and swelling on his left third finger for several days now. He reports that 1 week prior to the swelling, this finger was a trigger finger. Pt was seen by his PCP 2 days ago and was diagnosed with cellulitis. He was started on Keflex, which he takes 4 times a day. Pt denies any pain now to his finger. - History of Current Complaint Chief Complaint: EDExtremityUpper Stated Complaint: CELLULITIS Time Seen by Provider: 02/02/17 07:04 Hx Obtained From: Patient Onset/Duration: Started Days Ago, Still Present Timing: Lasting Days Pain Location: Finger - left third finger Aggravating Factor(s): Nothing Alleviating Factor(s): Nothing Associated Signs & Symptoms: Positive: Swelling, Redness. Negative: Fever - Allergies/Home Medications Allergies/Adverse Reactions: Allergies Allergy/AdvReac Type Severity Reaction Status Date / Time Hydrocodone Allergy ANXIOUS Verified 08/18/16 19:14 Metoprolol [From Toprol XL] Allergy Anxiety Verified 02/02/17 05:29 Amlodipine [From Norvasc] AdvReac Mild anxious Verified 08/18/16 19:14 Home Medications: Home Medications Aspirin EC Low Dose* [Ecotrin EC Low Dose 81 MG*] 81 mg PO DAILY 02/02/17 [ History Confirmed 02/02/17] Cephalexin CAP* [Keflex CAP*] 500 mg PO QID 02/02/17 [History Confirmed 02/02/17 ] Fluticasone NASAL SPRAY 50MCG* [Flonase NASAL SPRAY 50MCG*] 2 spray BOTH NARES DAILY PRN 02/02/17 [History Confirmed 02/02/17] Metoprolol Succinate XL TAB* [Toprol XL TAB*] 12.5 mg PO DAILY 02/02/17 [ History Confirmed 02/02/17] Multivitamins/Minerals TAB* [Theragran/minerals TAB*] 1 tab PO DAILY 02/02/17 [ History Confirmed 02/02/17] Nutritional Supplements [Cardio Complete] 1 cap PO BID 02/02/17 [History Confirmed 02/02/17] Potassium Chlor TAB* [Klor Con ER TAB*] 20 meq PO DAILY 02/02/17 [History Confirmed 02/02/17] PMH/Surg Hx/FS Hx/Imm Hx Endocrine/Hematology History: Reports: Hx Diabetes - borderline Cardiovascular History: Reports: Hx Coronary Artery Disease, Hx Hypercholesterolemia, Hx Hypertension, Hx Syncope Denies: Hx Congestive Heart Failure, Hx Pacemaker/ICD GI History: Reports: Hx Diverticulosis, Hx Gastroesophageal Reflux Disease Denies: Other GI Disorders History: Reports: Hx Benign Prostatic Hyperplasia, Hx Kidney Stones Denies: Hx Dialysis, Hx Renal Disease Comment Only: Other Problems/Disorders - prostate ca Musculoskeletal History: Reports: Hx Back Problems - lumbago Sensory History: Reports: Hx Contacts or Glasses Denies: Hx Hearing Aid Opthamlomology History: Reports: Hx Contacts or Glasses Psychiatric History: Denies: Hx Panic Disorder - Cancer History Cancer Type, Location and Year: PROSTATE - Surgical History Surgery Procedure, Year, and Place: melanoma removed left cheek, staple removed hand, tonsillectomy Infectious Disease History: No Infectious Disease History: Denies: Traveled Outside the [place] in Last 30 Days - Family History Known Family History: Positive: Other - Mother: [place] - Social History Alcohol Use: None Substance Use Type: Reports: None Smoking Status (MU): Former Smoker Type: Cigarettes Have You Smoked in the Last Year: No Review of Systems Negative: Fever, Chills Musculoskeletal: Other - left third finger swelling and redness Negative: Weakness, Paresthesia, Numbness All Other Systems Reviewed And Are Negative: Yes Physical Exam - Summary Physical Exam Summary: VITAL SIGNS: Reviewed. GENERAL: Patient is a well-developed and nourished female who is lying comfortable in the stretcher. Patient is not in any acute respiratory distress. HEAD AND FACE: No signs of trauma. No ecchymosis, hematomas or skull depressions. No sinus tenderness. EYES: PERRLA, EOMI x 2, No injected conjunctiva, no nystagmus. EARS: Hearing grossly intact. Ear canals and tympanic membranes are within normal limits. MOUTH: Oropharynx within normal limits. NECK: Supple, trachea is midline, no adenopathy, no JVD, no carotid bruit, no c- spine tenderness, neck with full ROM. CHEST: Symmetric, no tenderness at palpation LUNGS: Clear to auscultation bilaterally. No wheezing or crackles. CVS: Regular rate and rhythm, S1 and S2 present, no murmurs or gallops appreciated. ABDOMEN: Soft, non-tender. No signs of distention. No rebound no guarding, and no masses palpated. Bowel sounds are normal. EXTREMITIES: FROM in all major joints, no cyanosis or clubbing. LUE: there is redness and swelling on left third finger. There is tracking down his left hand. NEURO: Alert and oriented x 3. No acute neurological deficits. Speech is normal and follows commands. SKIN: Dry and warm Triage Information Reviewed: Yes Vital Signs On Initial Exam: Initial Vitals Temp Pulse Resp BP Pulse Ox 97.7 F 75 16 161/80 99 02/02/17 05:18 02/02/17 05:18 02/02/17 05:18 02/02/17 05:18 02/02/17 05:18 Vital Signs Reviewed: Yes - [place] Coma Scale Coma Scale Total: 15 Diagnostics - Vital Signs Vital Signs Temp Pulse Resp BP Pulse Ox 02/02/17 05:18 97.7 F 75 16 161/80 99 - Laboratory Lab Results: Lab Results 02/02/17 02/02/17 02/02/17 Range/Units 05:40 05:40 05:40 WBC 7.7 (3.5-10.8) 10^3/ul RBC 4.50 (4.0-5.4) 10^6/ul Hgb 13.0 L (14.0-18.0) g/dl Hct 40 L (42-52) % MCV 88 (80-94) fL MCH 29 (27-31) pg MCHC 33 (31-36) g/dl RDW 15 (10.5-15) % Plt Count 160 (150-450) 10^3/ul MPV 8 (7.4-10.4) um3 Neut % (Auto) 65.3 (38-83) % Lymph % (Auto) 20.7 L (25-47) % [place] % (Auto) 10.5 H (1-9) % Eos % (Auto) 2.9 (0-6) % Baso % (Auto) 0.6 (0-2) % Absolute Neuts (auto) 5.0 (1.5-7.7) 10^3/ul Absolute Lymphs (auto) 1.6 (1.0-4.8) 10^3/ul Absolute Monos (auto) 0.8 (0-0.8) 10^3/ul Absolute Eos (auto) 0.2 (0-0.6) 10^3/ul Absolute Basos (auto) 0 (0-0.2) 10^3/ul Absolute Nucleated RBC 0.01 10^3/ul Nucleated RBC % 0.1 INR (Anticoag Therapy) 0.98 (0.89-1.11) APTT 29.7 (26.0-36.3) seconds Sodium 137 (133-145) mmol/L Potassium 4.2 (3.5-5.0) mmol/L Chloride 104 (101-111) mmol/L Carbon Dioxide 27 (22-32) mmol/L Anion Gap 6 (2-11) mmol/L BUN 26 H (6-24) mg/dL Creatinine 1.04 (0.67-1.17) mg/dL Est GFR ( Amer) 87.5 (>60) Est GFR (Non-Af Amer) 68.0 (>60) BUN/Creatinine Ratio 25.0 H (8-20) Glucose 124 H (70-100) mg/dL Lactic Acid (0.5-2.0) mmol/L Calcium 9.3 (8.6-10.3) mg/dL Total Bilirubin 0.50 (0.2-1.0) mg/dL AST 21 (13-39) U/L ALT 21 (7-52) U/L Alkaline Phosphatase 74 (34-104) U/L C-Reactive Protein 97.92 H (< 5.00) mg/L Total Protein 7.2 (6.4-8.9) g/dL Albumin 4.0 (3.2-5.2) g/dL Globulin 3.2 (2-4) g/dL Albumin/Globulin Ratio 1.3 (1-3) Urine Color Urine Appearance Urine pH (5-9) Ur Specific [place] (1.010-1.030) Urine Protein (Negative) Urine Ketones (Negative) Urine Blood (Negative) Urine Nitrate (Negative) Urine Bilirubin (Negative) Urine Urobilinogen (Negative) Ur Leukocyte Esterase (Negative) Urine Glucose (Negative) Urine Ascorbic Acid (Negative) 02/02/17 02/02/17 Range/Units 05:40 09:29 WBC (3.5-10.8) 10^3/ul RBC (4.0-5.4) 10^6/ul Hgb (14.0-18.0) g/dl Hct (42-52) % MCV (80-94) fL MCH (27-31) pg MCHC (31-36) g/dl RDW (10.5-15) % Plt Count (150-450) 10^3/ul MPV (7.4-10.4) um3 Neut % (Auto) (38-83) % Lymph % (Auto) (25-47) % [place] % (Auto) (1-9) % Eos % (Auto) (0-6) % Baso % (Auto) (0-2) % Absolute Neuts (auto) (1.5-7.7) 10^3/ul Absolute Lymphs (auto) (1.0-4.8) 10^3/ul Absolute Monos (auto) (0-0.8) 10^3/ul Absolute Eos (auto) (0-0.6) 10^3/ul Absolute Basos (auto) (0-0.2) 10^3/ul Absolute Nucleated RBC 10^3/ul Nucleated RBC % INR (Anticoag Therapy) (0.89-1.11) APTT (26.0-36.3) seconds Sodium (133-145) mmol/L Potassium (3.5-5.0) mmol/L Chloride (101-111) mmol/L Carbon Dioxide (22-32) mmol/L Anion Gap (2-11) mmol/L BUN (6-24) mg/dL Creatinine (0.67-1.17) mg/dL Est GFR ( Amer) (>60) Est GFR (Non-Af Amer) (>60) BUN/Creatinine Ratio (8-20) Glucose (70-100) mg/dL Lactic Acid 0.6 (0.5-2.0) mmol/L Calcium (8.6-10.3) mg/dL Total Bilirubin (0.2-1.0) mg/dL AST (13-39) U/L ALT (7-52) U/L Alkaline Phosphatase (34-104) U/L C-Reactive Protein (< 5.00) mg/L Total Protein (6.4-8.9) g/dL Albumin (3.2-5.2) g/dL Globulin (2-4) g/dL Albumin/Globulin Ratio (1-3) Urine Color Yellow Urine Appearance Clear Urine pH 6.0 (5-9) Ur Specific [place] 1.023 (1.010-1.030) Urine Protein Negative (Negative) Urine Ketones Negative (Negative) Urine Blood Negative (Negative) Urine Nitrate Negative (Negative) Urine Bilirubin Negative (Negative) Urine Urobilinogen Negative (Negative) Ur Leukocyte Esterase Negative (Negative) Urine Glucose Negative (Negative) Urine Ascorbic Acid * H (Negative) Result Diagrams: 02/02/17 05:40 02/02/17 05:40 Lab Statement: Any lab studies that have been ordered have been reviewed, and results considered in the medical decision making process. Course/Dx - Course Assessment/Plan: This pt is a 86 y/o male presenting to [facility] c/o redness and swelling on his left third finger for several days now. He reports that 1 week prior to the swelling, this finger was a trigger finger. Pt was seen by his PCP 2 days ago and was diagnosed with cellulitis. He was started on Keflex, which he takes 4 times a day. Pt denies any pain now to his finger. Test results without any significant abnormalities except for slight anemia, glucose of 124, CRP of 97.9. It seems the pt is dealing with left hand cellulitis, which has been treated with outpatient therapy. In the ED, the pt was given Zosyn and I discussed the results with Dr. Gil, who accepted the pt for admission. Pt is hemodynamically stable, alert and oriented x3. - Diagnoses Differential Diagnosis/HQI/PQRI: Positive: Burn, Bursitis, Strain, Sprain Provider Diagnoses: Cellulitis - Physician Notifications Discussed Care of Patient With: Hellen Gil Time Discussed With Above Provider: 09:02 Instructed by Provider To: Other - I discussed the pt's case with Dr. Gil, she has agreed to admit the pt. Discharge - Discharge Plan Condition: Stable Disposition: ADMITTED TO [facility] The documentation as recorded by the Andrés kilpatrick Angela accurately reflects the service I personally performed and the decisions made by me, Mitch Liz MD.
--- NOTE | 2017-02-02 19:05 | HP ---
CC: Dr. Cummings * HISTORY AND PHYSICAL: DATE OF ADMISSION: 02/02/17 PRIMARY CARE PROVIDER: Dr. Cummings. CHIEF COMPLAINT: Left hand swelling and cellulitis. HISTORY OF PRESENT ILLNESS: Mr. Sanchez is an 86-year-old male with history of coronary artery disease, diabetes that is diet controlled, who was noted to have left hand cellulitis for the past couple of days. He was put on Keflex by his primary care provider on 01/31/17 and despite being treated with the medication, he continues to have left arm swelling and erythema as well as streaking up to his left arm. He is going to be admitted with the diagnosis of cellulitis that failed outpatient treatment. PAST MEDICAL HISTORY: 1. Diabetes type 2, diet controlled only. 2. History of trigger finger on the left middle finger. 3. History of BPH. 4. History of hypertension. 5. Coronary artery disease. 6. History of chronic lower back pain. 7. History of GI bleeding in July 2013. 8. History of kidney stones. MEDICATIONS: Home medications include: 1. Calcium carbonate/vitamin D 660 mg b.i.d. 2. Lipitor 10 mg daily. 3. Aspirin 81 mg daily. 4. Probiotic 1 capsule daily. 5. Multivitamin 1 tablet daily. 6. Digestive enzyme 1 capsule daily. 7. Selenium 100 mcg daily. 8. [place]-3 fatty acids 1 capsule b.i.d. 9. Cranberry 1 capsule daily. 10. Finasteride 5 mg daily. 11. Potassium chloride 20 mEq daily. 12. Nitroglycerin 0.4 mg on a p.r.n. basis. 13. Omeprazole 20 mg daily. 14. Metoprolol succinate 12.5 mg daily. 15. Flonase nasal spray 2 sprays both nostrils daily. 16. Flomax 0.4 mg b.i.d. 17. Keflex 500 mg 4 times a day. ALLERGIES: Include: 1. NORVASC makes the patient nervous. 2. TOPROL-XL makes the patient anxious, although please note that the patient had been on TOPROL-XL currently. 3. HYDROCODONE caused the patient to vomit. FAMILY HISTORY: Both his parents in their 90s of "old age." SOCIAL HISTORY: The patient has history of smoking for approximately 3 years over 40 years ago. He denies any alcohol or drug use. He lives with his , her name is Namrata. 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 Nevertheless, she is also the surrogate decision maker. REVIEW OF SYSTEMS: Please see history of present illness. In addition to the above mentioned, the patient ambulates without any assistance at baseline. He denies any fevers. All the remaining 12 systems were reviewed with the patient and were otherwise negative. PHYSICAL EXAMINATION GENERAL: The patient is a very pleasant 86-year-old male who is in no acute distress, alert, awake and oriented x3. VITAL SIGNS: Blood pressure 151/68, heart rate of 65 and regular, respiratory rate 16, oxygen saturation 95% on room air, temperature 99.7. HEENT: Head: Atraumatic, normocephalic. Eyes: Pupils are equal, reactive to light and accommodation. Oropharynx clear. Mucosa moist. NECK: Supple. No JVD. No bruits bilaterally. RESPIRATORY: Clear to auscultation bilaterally. CARDIOVASCULAR: Regular rate and rhythm. No murmur. ABDOMEN: Soft and nontender. Bowel sounds present in all 4 quadrants. EXTREMITIES: There is left hand major edema with no clubbing or cyanosis. There is no edema noted in any of the other remaining extremities. The left hand also has urticaria and erythema, mostly on the dorsal aspect of the patient 's hand. There is also erythema streaking in the medial aspect of the forearm on the left. NEURO EVALUATION: Speech is clear. Cranial nerves II through XII grossly intact. Motor strength is 5/5 bilaterally. DIAGNOSTIC STUDIES/LABORATORY DATA: Shows sodium 137, potassium 14.2, chloride 104, carbon dioxide 27, BUN 26, creatinine 1.04. Liver function tests were unremarkable. C-reactive protein of 92. CBC: White blood cell count of 7.7, hemoglobin of 13.0, hematocrit of 40 and platelets of 160,000. Urinalysis grossly unremarkable. ASSESSMENT AND PLAN: 1. An 86-year-old male with left hand cellulitis that had been treated as outpatient with Keflex, but failed outpatient treatment. The patient was started on Zosyn in the emergency department. This is going to be continued for the time being. 2. For his hypertension, which is currently mildly elevated, the patient is going to be continued on his TOPROL-XL. 3. For dyslipidemia, Lipitor is going to be continued. 4. For DVT prophylaxis, the patient is going to be placed on heparin subcutaneously. 6. For code status, the patient's code status is full. 7. For benign prostatic hypertrophy, the patient is going to be continued on his finasteride and Flomax. TIME SPENT: Approximately 65 minutes was spent on admission of this patient, more than half that time was spent [id number] with the patient doing the interview and physical exam. [id number]/[facility] #: [id number] RUBEN
[2017-02-02] MEDS: Tamsulosin CAP* 0.4 MG PO SCH (21:59)
[2017-02-02] MEDS: Senna TAB PO SCH (21:59)
[2017-02-02] MEDS: Lactobacillus Acidophilu (GG)* 1 CAP CAP PO SCH (21:59)
[2017-02-03] MEDS: Piperacillin/Tazobac ADVAN(*) 3.375 GM in NS 0.9% 100 ML* 100 ML IVPB SCH ×2 (04:10→11:40)
[2017-02-03] MEDS: Heparin VIAL(*) 5000 UNITS/ML VIAL (FIVE THOUSAND) SUBCUT SCH ×2 (05:55→13:56)
[2017-02-03 06:44] LABS: Hematocrit 39 % (42-52); Hemoglobin 12.9 g/dl (14.0-18.0); Mean Corpuscular HGB Conc 34 g/dl (31-36); Mean Corpuscular Hemoglobin 29 pg (27-31); Mean Corpuscular Volume 87 fL (80-94); Mean Platelet Volume 8 um3 (7.4-10.4); Red Blood Count 4.45 10^6/ul (4.0-5.4); Red Cell Distribution Width 14 % (10.5-15); White Blood Count 8.3 10^3/ul (3.5-10.8)
[2017-02-03 06:58] LABS: BUN/Creatinine Ratio 18.6 (8-20); EGFR African American 89.5 (>60); EGFR Non-African American 69.6 (>60); Potassium 3.9 mmol/L (3.5-5.0)
[2017-02-03] MEDS ORDERED: Omeprazole CAP* 20 MG PO SCH (07:30)
[2017-02-03] MEDS: Lactobacillus Acidophilu (GG)* 1 CAP CAP PO SCH (08:04)
[2017-02-03] MEDS: Tamsulosin CAP* 0.4 MG PO SCH (08:04)
[2017-02-03] MEDS: Senna TAB PO SCH (08:04)
--- NOTE | 2017-02-03 08:16 | PN ---
Subjective Date of Service: 02/03/17 Interval History: Patient seen this morning. Reports improvement in redness and swelling of hand/ arm. Feels that erythema has mostly receded from the arm, better ROM, denies any pain. Reports "trigger finger" in L middle finger that has been intermittent for the past few weeks. Denies fever/chills. Family History: Unchanged from Admission Social History: Unchanged from Admission Past Medical History: Unchanged from Admission Objective Active Medications: Acetaminophen (Tylenol Tab*) 650 mg PO Q4H PRN Al Hydrox/Mg Hydrox/Simethicone (Maalox Plus*) 30 ml PO Q6H PRN Aspirin (Aspirin Ec Low Dose*) 81 mg PO DAILY [facility] Atorvastatin Calcium (Lipitor*) 10 mg PO QPM [facility] Finasteride (Proscar Tab*) 5 mg PO DAILY [facility] Fluticasone Propionate (Flonase Nasal [place] 50mcg*) 2 spray BOTH NARES DAILY PRN Heparin Sodium (Porcine) (Heparin Vial(*)) 5,000 units SUBCUT Q8HR [facility] Hydralazine HCl (Apresoline Iv*) 5 mg IV SLOW PU Q6H PRN Piperacillin Sod/Tazobactam (Sod 3.375 gm/ Sodium Chloride) 100 mls @ 25 mls/ hr IVPB Q8H [facility] Lactobacillus Rhamnosus (Culturelle*) 1 cap PO BID [facility] Metoprolol Succinate (Toprol Xl Tab*) 12.5 mg PO DAILY [facility] Multivitamins/Minerals (Theragran/Minerals Tab*) 1 tab PO DAILY [facility] Omeprazole (Prilosec Cap*) 20 mg PO DAILY@0730 [facility] Potassium Chloride (Klor Con Er Tab*) 20 meq PO DAILY [facility] Senna (Senokot Tab*) 1 tab PO BID [facility] Tamsulosin HCl (Flomax Cap*) 0.4 mg PO BID [facility] Vital Signs 02/02/17 02/02/17 02/02/17 10:00 11:10 14:30 Temperature 97.3 F 98.1 F Pulse Rate 65 71 72 Respiratory 20 16 Rate Blood Pressure 151/68 183/94 141/77 (mmHg) O2 Sat by Pulse 95 99 99 Oximetry 02/03/17 02/03/17 07:58 08:00 Temperature 98.4 F Pulse Rate 85 Respiratory Rate Blood Pressure 138/72 (mmHg) O2 Sat by Pulse 95 95 Oximetry Oxygen Devices in Use Now: None Appearance: Elderly, M, laying in bed in NAD Eyes: No Scleral Icterus Ears/Nose/Mouth/Throat: Mucous Membranes Moist Neck: NL Appearance and Movements; NL JVP Respiratory: Symmetrical Chest Expansion and Respiratory Effort, Clear to Auscultation Cardiovascular: NL Sounds; No Murmurs; No JVD, RRR Abdominal: NL Sounds; No Tenderness; No Distention Lymphatic: No Cervical Adenopathy Extremities: - - Mild edema and erythema in L hand (receded from yesterday) mostly on dorsal aspect, skin wrinkled from improving edema, warmth on dorsal aspect and lower arm Result Diagrams: 02/03/17 06:24 02/03/17 06:24 Assess/Plan/Problems-Billing Assessment: LUE cellulitis in an 86 yo M with hx of HTN, CAD, diet-controlled DM, BPH, HLD - Patient Problems (1) Cellulitis of hand, left Current Visit: Yes Comment: Improving with IV Zosyn, will continue for now, has another dose due at noon, will re-evaluate for possible change to PO ABx and d/c (2) History of hypertension Current Visit: No Comment: Continue metoprolol (3) History of BPH Current Visit: No Comment: Continue tamsulosin and finasteride (4) History of coronary atherosclerosis Current Visit: No Comment: Continue ASA, statin, beta-harry (5) DVT prophylaxis Current Visit: No Comment: HSQ
[2017-02-03] MEDS ORDERED: Potassium Chlor TAB* 20 MEQ TAB.ER PO SCH (09:00)
[2017-02-03] MEDS ORDERED: Multivitamins/Minerals TAB PO SCH (09:00)
[2017-02-03] MEDS ORDERED: Finasteride TAB* 5 MG PO SCH (09:00)
[2017-02-03] MEDS ORDERED: Metoprolol Succinate XL TAB* 25 MG PO SCH (09:00)
[2017-02-03] MEDS ORDERED: Aspirin EC Low Dose* 81 MG TAB.EC PO SCH (09:00)
[2017-02-03 11:44] VITALS: BP 115/74
--- NOTE | 2017-02-05 11:31 | DS ---
CC: Dr. Cummings DISCHARGE SUMMARY: DATE OF ADMISSION: 02/02/17 DATE OF DISCHARGE: 02/03/17 PRIMARY CARE PHYSICIAN: Dr. Cummings. PRINCIPAL DISCHARGE DIAGNOSIS: Left upper extremity cellulitis. SECONDARY DIAGNOSES: 1. Type 2 diabetes. 2. Benign prostatic hypertrophy. 3. Hypertension. 4. Coronary artery disease. 5. Chronic low back pain. 6. History of gastrointestinal bleed. DISCHARGE MEDICATION REGIMEN: 1. Doxycycline 100 mg by mouth three times daily. 2. Flomax 0.4 mg by mouth two times daily. 3. Flonase two sprays in both nares daily as needed for allergies. 4. Toprol-XL 12.5 mg by mouth daily. 5. Omeprazole 20 mg by mouth daily. 6. Nitroglycerin 0.4 mg sublingual every 5 minutes as needed for angina. 7. Potassium chloride 20 mEq by mouth daily. 8. Finasteride 5 mg by mouth daily. 9. Cranberry vitamin C, vitamin D one capsule by mouth daily. 10. [place]-3 fatty acid one capsule by mouth two times daily. 11. Selenium 100 mcg by mouth daily. 12. Prostate health one capsule by mouth daily. 13. Multivitamin one tablet by mouth three times daily. 14. Nutrition supplements one capsule by mouth three times daily. 15. Digestive enzymes one capsule by mouth with meals. 16. Multivitamin one tablet by mouth daily. 17. Probiotic one capsule by mouth daily. 18. Aspirin 81 mg by mouth daily. 19. Atorvastatin 10 mg by mouth daily. 20. Calcium carbonate/vitamin D 660 mg by mouth two times daily. STUDIES DONE DURING HOSPITALIZATION: Left upper extremity CT, impression: Diffuse soft tissue swell ing. No abscess seen on this noncontrast study, osteoarthritic changes as described. 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 HISTORY OF PRESENT ILLNESS AND HOSPITAL SUMMARY: Please see the full history and physical by Dr. Mag devonte Gil for full details. Briefly, Mr. Sanchez is an 86-year- old man with past medical history a s above, who presented to the hospital with worsening left hand cellulitis despite outpatient antibio tics. The patient was seen by his PCP on 01/31/17 and was started on Keflex for left hand and arm er ythema and swelling. Despite 2 to 3 days of antibiotics, the patient's symptoms seemed to worsen. H e developed streaking of the left arm. He came to the hospital and was evaluated in the emergency de partment. He did not have a white count or fever. He underwent a CT of the left upper extremity jose armando t did not show any evidence of abscess or gas forming organisms. The patient was started on Zosyn an d after a little over 24 hours of IV antibiotics had significant improvement in his symptoms. Erythe ma had receded, swelling improved and the patient had no further pain. He was discharged home and wi ll continue an additional 7 days of oral doxycycline. He will follow up with his PCP as an outpatien t. TIME SPENT: Total time spent on this discharge 45 minutes. This is a summary of the hospitalization, please see the full medical record for further details. [id number]/[facility] #: [id number]
== END 2017-02-03 16:40 | disposition home or self-care (01) ==
LOC: ED 05:17 → INTOOBSV 09:34 → MED 09:34
PROVIDERS: ADMIT Internal Medicine; ATTEND Hospitalist
DX: L03.114 Cellulitis of left upper limb (principal); M79.89 Other specified soft tissue disorders; E11.9 Type 2 diabetes mellitus without complications; I10 Essential (primary) hypertension; E78.5 Hyperlipidemia, unspecified; I25.10 Atherosclerotic heart disease of native coronary artery without angina pectoris; N40.0 Benign prostatic hyperplasia without lower urinary tract symptoms; Z79.899 Other long term (current) drug therapy; Z87.891 Personal history of nicotine dependence
CPT/HCPCS: 36415; 80048; 80053; 80061; 81003; 82550; 83540; 83550; 83605; 83880; 85025; 85610; 85730; 86140; 87040; 96365; 96372; 96375; 96376; 99283; A9270-GY; G0378; J1644; J2543

== ENCOUNTER 2017-07-30 15:14 | Emergency (ER) | payer MEDICARE, OTHER ==
--- NOTE | 2017-07-30 15:16 | UC ---
Respiratory Complaint HPI - HPI Summary HPI Summary: 87 yo male presents with productive cough for the last 4 days. Says it hurts in his right chest when he coughs. He has not been taking anything OTC. Denies fever, chills, SOB, chest pain, abdominal pain. - History of Current Complaint Stated Complaint: PAINFUL COUGH Time Seen by Provider: 07/30/17 15:15 Hx Obtained From: Patient Onset/Duration: Sudden Onset Character: Cough: Productive - Allergies/Home Medications Allergies/Adverse Reactions: Allergies Allergy/AdvReac Type Severity Reaction Status Date / Time amlodipine [From [facility]] Allergy Anxiety Verified 07/30/17 15:27 hydrocodone Allergy Anxiety Verified 07/30/17 15:27 Home Medications: Home Medications Spironolactone TAB* [Aldactone TAB 25 MG*] 1 tab PO DAILY 07/30/17 [History Confirmed 07/30/17] PMH/Surg Hx/FS Hx/Imm Hx - Additional Past Medical History Additional PMH: BPH Endocrine History: Dyslipidemia Cardiovascular History: Hypertension GI/ History: Gastroesophageal Reflux - Surgical History Surgical History: Yes Surgery Procedure, Year, and Place: melanoma removed left cheek, staple removed hand, tonsillectomy - Family History Known Family History: Positive: Other - Mother: [place] - Social History Occupation: Retired Lives: With Family Alcohol Use: None Substance Use Type: None Smoking Status (MU): Former Smoker Type: Cigarettes Have You Smoked in the Last Year: No - Immunization History Most Recent Influenza Vaccination: 12/2016 Most Recent Tetanus Shot: UNKNOWN "About a year ago" Most Recent Pneumonia Vaccination: 2014 Review of Systems Constitutional: Negative Skin: Negative Eyes: Negative ENT: Negative Respiratory: Cough Cardiovascular: Negative Gastrointestinal: Negative Neurovascular: Negative Neurological: Negative Psychological: Negative All Other Systems Reviewed And Are Negative: Yes Physical Exam - Summary Physical Exam Summary: GENERAL: NAD. WDWN. No pain distress. SKIN: No rashes, sores, lesions, or open wounds. HEENT: Head: AT/NC Eyes: Conjunctiva clear without inflammation or discharge. Ears: Hearing grossly normal. TMs intact, no bulging, erythema, or edema. Nose: Nasal mucosa pink and moist. NTTP maxillary and frontal sinus. Throat: Posterior oropharynx without exudates, erythema, or tonsillar enlargement. Uvula midline. NECK: Supple. Nontender. No lymphadenopathy. CHEST: CTAB No r/r/w. No accessory muscle use. Breathing comfortably and in no distress. CV: RRR. Without m/r/g. Pulses intact. Brisk cap refill. NEURO: Alert. CN II-XII grossly intact. PSYCH: Age appropriate behavior. Triage Information Reviewed: Yes Respiratory Course/Dx - Course Course Of Treatment: CXR: IMPRESSION: No active cardiopulmonary disease is noted. Given his age and health history - will rx for antibiotic. - Differential Dx/Diagnosis Provider Diagnoses: Productive cough Discharge - Sign-Out/Discharge Documenting (check all that apply): Discharge/Admit/Transfer - Discharge Plan Condition: Stable Disposition: HOME Prescriptions: Benzonatate CAP* [Tessalon 100 MG CAP*] 100 mg PO TID PRN #15 cap PRN Reason: Cough DOXYcycline CAP(*) [DOXYcycline 100MG CAP(*)] 100 mg PO BID #14 cap Patient Education Materials: Acute Cough (ED) Referrals: Mitch Rich MD [Primary Care Provider] - Additional Instructions: If you develop a fever, shortness of breath, chest pain, new or worsening symptoms - please call your PCP or go to the ED. Your blood pressure was high at todays visit. Please see your primary provider within 4 weeks for recheck and re-evaluation. - Billing Disposition and Condition Condition: STABLE Disposition: HOME
[2017-07-30 15:26] VITALS: BP 154/97
--- NOTE | 2017-07-30 15:58 | RAD ---
Indication: Shortness of breath. 2 views of the chest including dual energy PA views demonstrates cardiomegaly. No mediastinal shift is noted. Lung grimes are clear. IMPRESSION: No active cardiopulmonary disease is noted.
== END 2017-07-30 16:16 | disposition home or self-care (01) ==
LOC: UCEAST 15:14
DX: R05 Cough (principal); N40.0 Benign prostatic hyperplasia without lower urinary tract symptoms; E78.5 Hyperlipidemia, unspecified; I10 Essential (primary) hypertension; K21.9 Gastro-esophageal reflux disease without esophagitis; Z85.820 Personal history of malignant melanoma of skin; Z88.5 Allergy status to narcotic agent; Z88.8 Allergy status to other drugs, medicaments and biological substances; Z87.891 Personal history of nicotine dependence
CPT/HCPCS: 71046; 99212; G0463

== ENCOUNTER 2017-10-30 11:51 | Observation (INO) | payer MEDICARE, OTHER ==
[2017-10-30] MEDS ORDERED: Diazepam TAB(*) 5 MG ONE (12:50)
[2017-10-30] MEDS ORDERED: ceFAZolin 1 GM/10 ML flush(*) SYRINGE for pocket flush (cardiology) FLUSH ONE (13:00)
[2017-10-30] MEDS ORDERED: ceFAZolin 2 GM PREMIX (*) 2 GM/50 ML BAG IVPB ONE (13:00)
[2017-10-30] MEDS ORDERED: Lidocaine 1%* 5 ML VIAL ONE (13:28)
[2017-10-30] MEDS ORDERED: Midazolam* 1 MG/ML 5 ML VIAL (5 MG) ONE (13:36)
[2017-10-30] MEDS ORDERED: fentaNYL* 50 MCG/ML 2 ML VIAL (100 MCG VIAL) ONE (13:36)
[2017-10-30] MEDS ORDERED: ceFAZolin VIAL 1 GM in NS *SYRINGE * * 10 ML ONE (14:00)
[2017-10-30] MEDS ORDERED: Acetaminophen TAB* 325 MG PO PRN (14:27)
--- NOTE | 2017-10-30 16:27 | RAD ---
INDICATION: Device implant COMPARISON: July 30, 2017 TECHNIQUE: An AP portable view obtained at 1608 hours is submitted. FINDINGS: Bones/Soft Tissues: There are no acute bony findings. There is interval left-sided cardiac pacemaker placement Cardiomediastinal: The cardiomediastinal silhouette is normal. Lungs: There are no infiltrates. There is no pneumothorax Pleura: There are no pleural effusions. Other: None IMPRESSION: LEFT-SIDED CARDIAC PACEMAKER PLACEMENT.
[2017-10-30] MEDS: ceFAZolin 1 GM VIAL(*) 1 GM in NS 0.9% 50 ML* 50 ML IVPB SCH (20:49)
--- NOTE | 2017-10-30 23:00 | OP ---
CC: Dada Aguilar MD OPERATIVE REPORT: DATE OF OPERATION: 10/30/17 DATE OF : 34 SURGEON: Hernan Dia MD ANESTHESIA: Local anesthesia with conscious sedation. PRE-OP DIAGNOSES: Symptomatic bradycardia. POST-OP DIAGNOSES: Symptomatic bradycardia. OPERATIVE PROCEDURE: Dual-chamber pacemaker implantation. ESTIMATED BLOOD LOSS: Nil. COMPLICATIONS: None. INDICATIONS: The patient is an 87-year-old gentleman who has had progressive bradycardia over quite some months. The patient had stopped all of his rate reducing agents. Recent echocardiogram showed bradycardia down into the 30s while awake and symptomatic. Permanent pacemaker was recommended. DESCRIPTION OF PROCEDURE: The patient was brought to the procedure room in a fasting state. Informe d consent had been obtained prior to the procedure. All labs had been reviewed. The patient was vlad guerrero supine on the procedure table. His left deltopectoral area was cleaned and draped in the usual f ashion. 1% lidocaine was used for local anesthesia. Using ultrasound guidance, the axillary vein wa s entered by a modified Seldinger technique and a guidewire was placed. A second guidewire was place d under the same technique. A 3.5-cm incision was made in the pectoral area and blunt dissection was carried down to the pectoral fascia. A pocket was fashioned for the pacemaker. Over the first guid ewire, an introducer was placed through which a right ventricular lead was advanced to the RV apex. The right ventricular lead is a Medtronic model 5076, serial #[id number]. It had an R- wave sensitiv ity of 5.6, impedance 706 ohms, threshold 0.6 volts at 0.5 milliseconds. The ventricular lead was reyna tured to the pectoral fascia. Over the second guidewire, an introducer was placed through which a ri ght atrial lead was advanced to the high right atrium. The right atrial lead is a Medtronic model 50 76, serial #[id number]. It had a P-wave sensitivity of 1.3, impedance 669 ohms, threshold 1.8 volts at 0.5 milliseconds. The atrial lead was sutured to the pectoral fascia and the pocket was flushed a nd a generator was attached appropriately to the atrial and ventricular leads. The generator is a Smallaa model W1DR01, serial #[id number]. The device was placed in the pocket. The surgical incisio n was closed in 3 layers. The patient tolerated the procedure well. [id number]/[facility] #: [id number]
[2017-10-31] MEDS: ceFAZolin 1 GM VIAL(*) 1 GM in NS 0.9% 50 ML* 50 ML IVPB SCH (04:52)
[2017-10-31 08:18] VITALS: BP 137/97
--- NOTE | 2017-10-31 08:18 | RAD ---
HISTORY: S/P Device Implant COMPARISONS: October 30, 2017 VIEWS: 4: Frontal dual-energy and lateral views of the chest. FINDINGS: CARDIOMEDIASTINAL SILHOUETTE: The cardiomediastinal silhouette is normal. JAYCOB: The jaycob are normal. PLEURA: The costophrenic angles are sharp. No pleural abnormalities are noted. There is no appreciable pneumothorax. LUNG PARENCHYMA: The lungs are clear. ABDOMEN: The upper abdomen is clear. There is no subphrenic gas. BONES AND SOFT TISSUES: Degenerative changes are noted along the spine. OTHER: A dual-lead left-sided pacemaker is noted. IMPRESSION: NO ACTIVE CARDIOPULMONARY DISEASE.
[2017-10-31] MEDS ORDERED: Metoprolol Tartrate IV* 1 MG/ML 5 ML VIAL IV PRN (09:32)
--- NOTE | 2017-10-31 16:11 | DS ---
CC: Dr. Dada Aguilar DISCHARGE SUMMARY: DATE OF ADMISSION: 10/30/17 DATE OF DISCHARGE: 10/31/17 Please see admission history and physical for details of the patient's presentation. HOSPITAL COURSE: The patient is an 87-year-old gentleman with a history of bradycardia and episodes of lightheadedness. The patient had documented bradycardia down to 40 beats per minute with symptoms of lightheadedness. Permanent pacemaker was recommended. The patient was brought to the hospital. He underwent dual chamber pacemaker implantation yesterday. This procedure went without incident and the patient is feeling quite comfortable this morning. The patient has a Medtronic dual chamber pacemaker. Interrogation today showed a right atrium, imped ance 399, right ventricular impedance 494, right atrial sensing 1.4, right ventricular sensing 2.0, a trial threshold 0.75 volts at 0.4 milliseconds, ventricular threshold 0.5 volts at 0.4 milliseconds. The patient's chest x-ray today shows no evidence of pneumothorax, normal placement of the pacemaker lead. PHYSICAL EXAMINATION: Vital signs: Today, vital signs are stable. Heart rate is 97, blood pressure 137/97, temperature 97. Lungs: Clear to auscultation. Cardiac: S1 and S2 without any murmurs, rub s, or gallops. The patient's pacemaker site is stable. There is minimal ecchymosis. There is no er ythema. Dressing was changed. DISPOSITION: The patient will be discharged home. DISCHARGE MEDICATIONS: Multiple supplements as the patient was taking before: 1. Omeprazole 20 mg a day. 2. Atorvastatin 10 mg a day. 3. Flomax 0.4 mg b.i.d. 4. Finasteride 5 mg daily. 5. Aspirin 81 mg a day. 6. Multivitamin a day. 7. Spironolactone 25 mg a day. 8. Multiple eye drops. ALLERGIES: The patient is intolerant of AMLODIPINE and HYDROCODONE. FOLLOWUP: The patient will be discharged with Keflex 250 mg 3 times a day for 3 days. The patient w ill resume his normal dosing of metoprolol. I will see the patient in follow up in 1 week. [id number]/[facility] #: [id number]
== END 2017-10-31 11:50 | disposition home or self-care (01) ==
LOC: CHICATH 11:51 → MEDTELE 14:27
PROVIDERS: ADMIT Specialist; ATTEND Specialist
DX: R00.1 Bradycardia, unspecified (principal); I44.1 Atrioventricular block, second degree; I45.2 Bifascicular block; Z79.82 Long term (current) use of aspirin; R42 Dizziness and giddiness
CPT/HCPCS: 33208; 71045; 71046; 93005; 96365; 99156; 99157; A9270-GY; C1785; C1898; G0378; J0690; J2250; J3010; J3490

== ENCOUNTER 2018-03-31 16:48 | Emergency (ER) | payer MEDICARE, OTHER ==
--- OUTSIDE RECORDS SUMMARY | 2018-03-31 16:57 | XMS REPORT | Continuity of Care Document ---
:1930 External Reference #:[id number] Author Name Lucho Alvarado M.D. Address [address] [place] [address] Care Team Providers Name Role Phone Mitch Rich M.D. Primary Care Physician Unavailable Payers Type Date Identification Numbers Payment Provider Subscriber Effective: 1997 Policy Number: [id number] Medicare - NGS Abel Sanchez PayID: [id number] [address] [facility][1] [place] [address] Policy Number: [id number] [employer] Abel Sanchez PayID: [id number] [address] [place] [address] Advance Directives Description No Information Available Problems Date Description Provider Status Onset: Seasonal allergy Active Onset: Gastroesophageal reflux disease Active Onset: Benign prostatic hyperplasia Active Onset: Type 2 diabetes mellitus Active Onset: Essential hypertension Active Onset: Heart murmur Active Onset: Arthritis Active Onset: 10/13/2014 Ocular hypertension Lucho Alvarado M.D. 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 Active Onset: 10/13/2014 Nuclear senile cataract Lucho Alvarado M.D. Active Onset: 12/01/2016 Type 2 diabetes mellitus with mild Lucho Alvarado M.D. Active nonproliferative diabetic retinopathy without macular edema, bilateral Onset: 09/01/2017 Combined form of senile cataract Lucho Alvarado M.D. Active Onset: 09/01/2017 Bilateral primary open angle glaucoma Lucho Alvarado M.D. 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 ETOH Use Denies alcohol use Tobacco Use Start: Unknown End: Unknown Patient is a former smoker Recreational Drug Use Denies Drug Use Smoking Status Reviewed: 03/23/18 Patient is a former smoker Allergies, Adverse Reactions, Alerts Date Description Reaction Status Severity Comments 10/13/2014 Norvasc Active 10/13/2014 Toprol XL Active 10/13/2014 Hydrocodone Active 10/13/2014 TobraDex Active 10/13/2014 Erythromycin Active Medications Medication Date Status Form Strength Qnty SIG Indications Ordering Provider Latanoprost 09/01/ Active Solution 0.005% 7.5ml 1 drop H40.1131 Lucho Hsu both pablo Alvarado M.D. every night Vision 10/12/ Active Tablets Lucho Kiran Formula/Lutein 2014 Diaen Alvarado Metoprolol / Active Tablets ER 25mg Unknown Succinate ER 0000 24HR Tamsulosin HCL / Active Capsules 0.4mg Unknown 0000 Atorvastatin / Active Tablets 10mg Unknown Calcium 0000 Finasteride / Active Tablets 5mg Unknown 0000 Omeprazole / Active Capsules DR 20mg Unknown 0000 Aspirin Adult / Active Tablets DR 81mg Unknown Low Dose 0000 Cranberry / Active Tablets 250mg Unknown Extract 0000 [place] 3-6-9 / Active Capsules Unknown Complex 0000 Selenium / Active Tablets 100mcg Unknown 0000 Cardio Complete 00/ Active Capsules Unknown 0000 Prostate Health / Active Capsules Unknown 0000 Enzyme Digest / Active Capsules Unknown 0000 Ailyn-Q / Active Capsules Unknown 0000 Multiple Vitamin / Active Tablets Unknown 0000 Systane / Active Solution 0.4-0.3% as Unknown 0000 needed Spironolactone / Active Tablets 25mg 1 tab po Unknown 0000 daily Potassium / Hx Tablets ER 20Meq Unknown Chloride Clarisa ER 0000 - 2017 Fluticasone 00/00/ Hx Suspension 50mcg/Act instill Unknown Propionate 0000 - 2 sprays 2017 each nostril once daily Immunizations Description No Information Available Vital Signs Description No Information Available Results Description No Information Available Procedures Date Code Description Status 09/01/2017 07462 Visual Field Exam Extended Completed 09/01/2017 80814 Gonioscopy Completed 09/01/2017 47679 Est Patient Intermediate Exam Completed 07/25/2017 68932 Scanning Computerized Ophthalmic Diagnostic Imag Posterior Completed Seg On 07/25/2017 54740 Visual Field Exam Extended Completed 07/25/2017 15082 Est Patient Comprehensive Exam Completed 01/30/2017 62296 Est Patient Comprehensive Exam Completed 01/30/2017 613 Proomega Tablets Completed 12/01/2016 17885 Est Patient Comprehensive Exam Completed 12/01/2016 613 Proomega Tablets Completed 05/20/2016 47090 Scanning Computerized Ophthalmic Diagnostic Imag Posterior Completed Seg On 05/20/2016 51997 Visual Field Exam Extended Completed 05/20/2016 36714 Est Patient Intermediate Exam Completed 11/10/2015 44282 Est Patient Comprehensive Exam Completed 11/10/2015 12890 Scanning Computerized Opthalmic Diagnostic Posterior Seg Completed Retina 10/23/2014 80445 Visual Field Exam Extended Completed 10/13/2014 81378 Fundus Photography With Interpretation And Report Completed 10/13/2014 63253 Est Patient Comprehensive Exam Completed 09/17/2013 30749 Fundus Photography With Interpretation And Report Completed 09/17/2013 26947 Est Patient Comprehensive Exam Completed 02/22/2013 39852 Est Patient Intermediate Exam Completed 08/17/2012 62791 Fundus Photography With Interpretation And Report Completed 08/17/2012 13566 Est Patient Intermediate Exam Completed 08/09/2012 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 Completed 07/16/2012 07349 Visual Field Exam Extended Completed 02/16/2012 37280 Est Patient Intermediate Exam Completed 08/14/2011 56117 Est Patient Intermediate Exam Completed 07/29/2011 18079 Est Patient Intermediate Exam Completed 07/05/2011 12120 Scanning Computerized Ophthalmic Diagnostic Imag Posterior Completed Seg On 07/05/2011 14473 Visual Field Exam Extended Completed 07/05/2011 26064 Est Patient Comprehensive Exam Completed 12/30/2010 46156 Est Patient Intermediate Exam Completed 06/29/2010 85278 Scanning Computerized Ophthalmic Diagnostic Imag Posterior Completed Seg On 06/29/2010 03175 Visual Field Exam Extended Completed 06/29/2010 68727 Determination Of Refractive State Completed 06/29/2010 58867 Est Patient Comprehensive Exam Completed 11/10/2009 21526 Fundus Photography With Interpretation And Report Completed 11/10/2009 60661 Est Patient Intermediate Exam Completed 07/16/2009 93542 Visual Field Exam Extended Completed 07/09/2009 24130 Est Patient Comprehensive Exam Completed 07/09/2009 02203 Determination Of Refractive State Completed 07/09/2009 37727 Scanning Laser W/Interp And Report Completed 11/27/2006 67808 Determination Of Refractive State Completed 11/27/2006 12950 Est Patient Comprehensive Exam Completed 09/28/2005 81357 Determination Of Refractive State Completed 09/28/2005 54376 Est Patient Comprehensive Exam Completed 09/28/2004 94805 Determination Of Refractive State Completed 09/28/2004 83069 Est Patient Comprehensive Exam Completed 09/01/2004 86295 Scanning Laser W/Interp And Report Completed 09/01/2004 64122 Visual Field Exam Extended Completed 10/13/2003 91030 Determination Of Refractive State Completed 10/13/2003 91597 Est Patient Comprehensive Exam Completed 09/24/2003 93538 Visual Field Exam Intermediate Completed Encounters Type Date Location Provider Dx Diagnosis Office Visit 10/03/2017 Smita Patel, H40.1131 Primary 10:15a , hoang O.DJesús open-angle glaucoma, bilateral, mild stage H25.813 Combined forms of age-related cataract, bilateral Office Visit 07/13/2013 2:30p Smita Patel, 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 Unspec Office Visit 03/04/2013 11:10a Lucho Kiran 372.30 Conjunctivitis MD Christiano, hoang Cochran O.D. Unspec Office Visit 03/02/2013 10:00a Lucho Reynolds, 372.30 Conjunctivitis MD Christiano, pc Roel Unspec Office Visit 03/01/2013 11:10a Lucho Kiran 372.30 Conjunctivitis MD Christiano, hoang Cochran O.D. Unspec Office Visit 02/24/2013 8:00a Lucho Garcias 372.30 Conjunctivkassandra Alvarado MD, hoang Perez M.D. Unspec Office Visit 06/21/2012 10:45a Lucho Garcias 372.30 Conjunctivkassandra Alvarado MD, hoang Perez M.D. Unspec Office Visit 06/18/2012 12:30p Bj Chirinos 372.30 Conjunctivitis MD Christiano, hoang Sevilla Unspec Office Visit 08/17/2011 8:30a Lucho Kiran 372.14 Allergic MD Christiano, hoang Cochran O.D. Conjunctivitis Office Visit 08/01/2011 2:30p Lucho Silva 918.1 Corneal Abrasion MD Christiano, hoang Claire O.D. Superior [employer]eration Office Visit 07/30/2011 12:45p Lucho Silva 918.1 Corneal Abrasion MD Christiano, hoang Claire O.D. [employer] Plan of Treatment 03/23/2018 - Lucho Alvarado M.D.H40.1131 Primary open-angle glaucoma, bilateral, mild stageComments:Smoking can increase the risk of developing or worsening any eye related disease, as well as affect your overall health. If you are a smoker, we strongly recommend that you quit.If you are not a smoker, we strongly recommend that you do not start. Your glaucoma is stable at this time.Your eye pressure is within an acceptable range, and your testing does not show any further deterioration at this time. Please continue your treatment.Follow up:6 Month Follow Up Diagnostic Refraction DFE/IOP Visual Field, 30-2 You can expect to have your eyes dilated at your next visit. If Dr. Alvarado orders any additional testing, it may require extra time. We recommend that you bring sunglasses, as dilation drops often make you light sensitive until they wear off. We always recommend you bring someone to drive you home if you are uncomfortable driving with your eyes dilated. If you have any questions before your next visit, feel free to call our office at .H25.813 Combined forms of age-related cataract, bilateralComments:You have been diagnosed with cataracts. They are limiting your vision, and I am unable to improve you with new glasses. Our next step is to schedule Cataract surgery and all necessary appointments, which Nadia will do for you. We recommend that you write down any questions you may have and bring them to your preoperative appointment so that Dr. Alvarado can answer them for you. If you have any questions or concerns, you can reach Rosario Talavera at .Follow up:For preop exam before surgery.E11.9 Type 2 diabetes mellitus without complicationsComments:You have diabetes. I do not detect any changes in both of your retinas from diabetes at this time. Proper control of your diabetes is important for the health of your eyes. Changes in your eyes from diabetes can happen without symptoms, so it is important that you have your eyes examined. Dr. Alvarado has sent a report to your primary care doctor, letting them know there is no damage from the Diabetes in your eyes.
[2018-03-31 17:57] VITALS: BP 117/63
[2018-03-31 18:22] LABS: Influenza A Molecular NEGATIVE (Negative); Influenza B Molecular NEGATIVE (Negative)
--- NOTE | 2018-03-31 18:29 | UC ---
Respiratory Complaint HPI - HPI Summary HPI Summary: The patient is an 88-year-old male with a 2 day history of nasal congestion sore throat and cough. He has had a low-grade fever. His is currently hospitalized with the flu. He denies any chest pain or shortness of breath. - History of Current Complaint Chief Complaint: UCRespiratory Stated Complaint: SORE THROAT,COUGH Time Seen by Provider: 03/31/18 18:28 Hx Obtained From: Patient Onset/Duration: Gradual Onset, Lasting Days Severity Initially: Mild Severity Currently: Mild Pain Intensity: 0 Pain Scale Used: 0-10 Numeric Character: Cough: Nonproductive Associated Signs And Symptoms: Positive: Fever, Chills, Nasal Congestion, Sinus Discomfort - Allergies/Home Medications Allergies/Adverse Reactions: Allergies Allergy/AdvReac Type Severity Reaction Status Date / Time amlodipine [From [facility]] AdvReac Anxiety Verified 03/31/18 17:46 hydrocodone AdvReac Anxiety Verified 03/31/18 17:46 PMH/Surg Hx/FS Hx/Imm Hx Previously Healthy: Yes Endocrine History: Diabetes Cardiovascular History: Hypertension, Pacemaker/ICD Cancer History: Prostate Cancer - Surgical History Surgical History: Yes Surgery Procedure, Year, and Place: melanoma removed left cheek, staple removed hand, tonsillectomy,pacemaker placement - Family History Known Family History: Positive: Hypertension, Other - Mother: [place] - Social History Alcohol Use: None Substance Use Type: None Smoking Status (MU): Former Smoker Type: Cigarettes Have You Smoked in the Last Year: No - Immunization History Most Recent Influenza Vaccination: 12/2016 Most Recent Tetanus Shot: UNKNOWN "About a year ago" Most Recent Pneumonia Vaccination: 2014 Review of Systems All Other Systems Reviewed And Are Negative: Yes Constitutional: Positive: Fever, Chills Skin: Positive: Negative Eyes: Positive: Negative ENT: Positive: Sore Throat, Nasal Discharge, Sinus Congestion Respiratory: Positive: Cough Cardiovascular: Positive: Negative Gastrointestinal: Positive: Negative Genitourinary: Positive: Negative Motor: Positive: Negative Neurovascular: Positive: Negative Musculoskeletal: Positive: Negative Neurological: Positive: Negative Psychological: Positive: Negative Physical Exam Vital Signs: Initial Vital Signs Temp 98.5 F 03/31/18 17:50 Pulse 83 03/31/18 17:50 Resp 18 03/31/18 17:50 BP 117/63 03/31/18 17:50 Pulse Ox 97 03/31/18 17:50 Diagnostic Evaluation - Laboratory O2 Sat by Pulse Oximetry: 97 - normal /not hypoxic Diagnostic Studies Comment: strep(-). influenza (-) Respiratory Course/Dx - Differential Dx/Diagnosis Provider Diagnosis: Influenza-like illness Discharge - Sign-Out/Discharge Documenting (check all that apply): Patient Departure All imaging exams completed and their final reports reviewed: No Studies - Discharge Plan Condition: Stable Disposition: HOME Prescriptions: Oseltamivir CAP* [Tamiflu CAP*] 75 mg PO BID #9 cap Patient Education Materials: Influenza (ED) Referrals: Mitch Rich MD [Primary Care Provider] - 5 Days (if not better) Additional Instructions: despite your negative flu test we will treat you - Billing Disposition and Condition Condition: STABLE Disposition: Home
[2018-03-31] MEDS ORDERED: Oseltamivir CAP* 75 MG CAP PO ONE (18:34)
== END 2018-03-31 18:45 | disposition home or self-care (01) ==
LOC: UCEAST 16:48
DX: J11.1 Influenza due to unidentified influenza virus with other respiratory manifestations (principal); Z95.0 Presence of cardiac pacemaker; Z88.5 Allergy status to narcotic agent; Z88.8 Allergy status to other drugs, medicaments and biological substances; Z87.891 Personal history of nicotine dependence
CPT/HCPCS: 87651; 99212; A9270-GY; G0463

== ENCOUNTER 2018-12-29 12:00 | Emergency (ER) | payer MEDICARE, OTHER ==
[2018-12-29] MEDS ORDERED: Meclizine TAB* 12.5 MG PO ONE (12:09)
--- NOTE | 2018-12-29 12:17 | ED ---
Dizziness - HPI Summary HPI Summary: Patient is a 88 y/o M w/ Hx of vertigo who presents to [facility] via EMS with chief complaint of dizziness. Patient has had intermittent dizziness with nausea over the past few weeks. However, in the past 1-2 days, the patient has had worse and more persistent dizziness. As a result, EMS was called today. Patient had resolution of Sx upon EMS arrival and remained asymptomatic throughout transport and at present. EMS reports 140-150s systolic BP, BG of 129. Patient has a pacemaker and Hx of RBBB. EMS gave 300 mL of fluids. Patient had reported to EMS that he does not drink water frequently. In the room, patient notes that he had URI Sx but these had resolved a few days ago. Ear ringing is denied. On triage, pain denied, nothing is noted to aggravate/alleviate Sx. Home medications and allergies are reviewed. - History Of Current Complaint Stated Complaint: DIZZINESS PER EMS Hx Obtained From: Patient Onset/Duration: Resolved Timing: Weeks Severity Currently: None - pain denied Character: Dizzy Aggravating Factor(s): Nothing Alleviating Factor(s): Nothing Associated Signs And Symptoms: Positive: Nausea, Other: - positive - URI Sx, since resolved; negative - ear ringing - Allergies/Home Medications Allergies/Adverse Reactions: Allergies Allergy/AdvReac Type Severity Reaction Status Date / Time amlodipine [From [facility]] AdvReac Anxiety Verified 11/07/18 13:11 hydrocodone AdvReac Anxiety Verified 11/07/18 13:11 Home Medications: Home Medications Latanoprost 0.005%* [Xalatan 0.005%*] 1 drop BOTH EYES QPM 12/29/18 [History Confirmed 12/29/18] PMH/Surg Hx/FS Hx/Imm Hx Endocrine/Hematology History: Reports: Hx Diabetes - borderline Comment Only: Hx Anemia - HISTORY OF Cardiovascular History: Reports: Hx Coronary Artery Disease, Hx Hypercholesterolemia, Hx Hypertension, Hx Pacemaker/ICD - 10/30/2017, Hx Syncope , Other Cardiovascular Problems/Disorders - A fib,ASHD, RBBB AND HIGH CHOLESTEROL Denies: Hx Congestive Heart Failure Respiratory History: Reports: Hx Sleep Apnea GI History: Reports: Hx Diverticulosis, Hx Gastroesophageal Reflux Disease, Hx Gastrointestinal Bleed Denies: Other GI Disorders History: Reports: Hx Benign Prostatic Hyperplasia, Hx Kidney Stones Denies: Hx Dialysis, Hx Renal Disease Comment Only: Other Problems/Disorders - prostate ca Musculoskeletal History: Reports: Hx Arthritis - GENERAL, Hx Back Problems - lumbago Sensory History: Reports: Hx Cataracts, Hx Contacts or Glasses Denies: Hx Hearing Aid Opthamlomology History: Reports: Hx Cataracts, Hx Contacts or Glasses Neurological History: Reports: Hx Headaches Psychiatric History: Reports: Hx Anxiety Denies: Hx Panic Disorder - Cancer History Cancer Type, Location and Year: PROSTATE Hx Chemotherapy: No - Surgical History Surgery Procedure, Year, and Place: melanoma removed left cheek, staple removed hand, tonsillectomy,pacemaker placement Hx Anesthesia Reactions: No - Family History Known Family History: Positive: Hypertension, Other - Mother: [place] - Social History Alcohol Use: None Hx Substance Use: No Substance Use Type: Reports: None Hx Tobacco Use: Yes Smoking Status (MU): Former Smoker Type: Cigarettes Have You Smoked in the Last Year: No Review of Systems ENT: Other - negative - ear ringing Respiratory: Other - positive - URI Sx Positive: Nausea Neurological: Other - positive - dizziness All Other Systems Reviewed And Are Negative: Yes Physical Exam - Summary Physical Exam Summary: VITAL SIGNS: Reviewed. GENERAL: Patient is a well-developed and nourished male who is lying comfortable in the stretcher. Patient is not in any acute respiratory distress. HEAD AND FACE: No signs of trauma. No ecchymosis, hematomas or skull depressions. No sinus tenderness. EYES: PERRLA, EOMI x 2, No injected conjunctiva, no nystagmus. EARS: Hearing grossly intact. Ear canals and tympanic membranes are within normal limits. MOUTH: Oropharynx within normal limits. NECK: Supple, trachea is midline, no adenopathy, no JVD, no carotid bruit, no c- spine tenderness, neck with full ROM. CHEST: Symmetric, no tenderness at palpation. LUNGS: Clear to auscultation bilaterally. No wheezing or crackles. CVS: Regular rate and rhythm, S1 and S2 present, no murmurs or gallops appreciated. ABDOMEN: Soft, non-tender. No signs of distention. No rebound, no guarding, and no masses palpated. Bowel sounds are normal. EXTREMITIES: FROM in all major joints, no edema, no cyanosis or clubbing. NEURO: Alert and oriented x 3. No acute neurological deficits. Speech is normal and follows commands. GCS 15. SKIN: Dry and warm. Triage Information Reviewed: Yes Vital Signs On Initial Exam: Initial Vitals Temp Pulse Resp BP Pulse Ox 96.3 F 84 16 169/93 97 12/29/18 12:02 12/29/18 12:02 12/29/18 12:02 12/29/18 12:02 12/29/18 12:02 Vital Signs Reviewed: Yes Procedures - Sedation Patient Received Moderate/Deep Sedation with Procedure: No Diagnostics - Laboratory Result Diagrams: 12/29/18 12:47 12/29/18 12:47 Lab Statement: Any lab studies that have been ordered have been reviewed, and results considered in the medical decision making process. - Radiology CXR Radiology Interpretation Completed By: Radiologist Summary of Radiographic Findings: CXR IMPRESSION: No active cardiopulmonary disease is noted. THIS REPORT WAS REVIEWED BY DR. LIZ. - CT BRAIN CT CT Interpretation Completed By: Radiologist Summary of CT Findings: IMPRESSION: No intracranial mass or hemorrhage is noted. Chronic ischemic White matter. change is noted. THIS REPORT WAS REVIEWED BY DR. LIZ. - EKG 1230 Cardiac Rate: NL - atrial-ventricular paced rhythm with rate of 72 BPM EKG Comparison: No Significant Change - similar to previous EKG done 05/21/18 Summary of EKG Findings: Atrial-ventricular paced rhythm with rate of 72 BPM, similar to previous EKG done 05/21/18. This EKG was reviewed and interpreted by Dr. Liz. Re-Evaluation - Re-Evaluation First Eval Re-Evaluation Time: 14:07 Comment: Patient is walking with a good steady walk. Patient has no ataxia when I ambulated him. At this point I discussed all the findings and test results with the patient. He was instructed to return to the emergency room immediately if any of the symptoms return or worsen. Patient understand and agree. Neurological exam before discharge: Patient is alert and oriented x 3. No acute neurological deficits. Patient's vital signs are stable. Patient is to follow up with PCP in the next 2 3 days. Patient understands and agrees. Plan of care was discussed with the patient and patient understands and agrees with the plan of care. All questions were answered at patient satisfaction. There were no further complaints or concerns. Dizzy Course/Dx - Course Assessment/Plan: Patient is an 88-year-old male who came into the emergency department with a chief complaint of having dizziness. Patient had one episode of the symptoms today which resolved. Patient is asymptomatic in the emergency room. Lab results without any significant abnormality except for hemoglobin 13.9, creatinine 1.21, glucose 127, and BNP 113. Head CT impression: No acute intracranial mass or hemorrhage is noted. Chronic ischemic white matter changes noted. In the ED course the patient was given meclizine. Patient is walking with a good steady walk. Patient has no ataxia when I ambulated him. Patient reported that he had an upper respiratory tract infections a couple days ago and I believe that he has vertigo. At this time, RESULTS are normal, patient is asymptomatic. Therefore he will be discharged home with follow-up with PCP. At this point I discussed all the findings and test results with the patient. He was instructed to return to the emergency room immediately if any of the symptoms return or worsen. Patient understand and agree. Neurological exam before discharge: Patient is alert and oriented x 3. No acute neurological deficits. Patient's vital signs are stable. Patient is to follow up with PCP in the next 2 3 days. Patient understands and agrees. Plan of care was discussed with the patient and patient understands and agrees with the plan of care. All questions were answered at patient satisfaction. There were no further complaints or concerns. - Diagnoses Provider Diagnoses: Vertigo Discharge ED - Sign-Out/Discharge Documenting (check all that apply): Patient Departure - discharge - Discharge Plan Condition: Stable Disposition: HOME Prescriptions: Meclizine TAB* [Antivert 12.5 TAB*] 25 mg PO TID PRN #30 tab PRN Reason: Vertigo Patient Education Materials: Vertigo (ED) Referrals: Mitch Rich MD [Primary Care Provider] - 3 Days Additional Instructions: PLEASE RETURN TO ED FOR ANY NEW OR WORSENING SYMPTOMS. PLEASE FOLLOW UP WITH YOUR PRIMARY CARE PHYSICIAN WITHIN 2-3 DAYS. - Billing Disposition and Condition Condition: STABLE Disposition: Home - Attestation Statements Document Initiated by Scribe: Yes Documenting Scribe: NATALIA CURTIS Provider For Whom Scribe is Documenting (Include Credential): MITCH LIZ MD Scribe Attestation: NATALIA Adair, scribed for MITCH LIZ MD on 12/29/18 at 2136. Scribe Documentation Reviewed: Yes Provider Attestation: The documentation as recorded by the scribe, NATALIA CURTIS accurately reflects the service I personally performed and the decisions made by me, MITCH LIZ MD Status of [place] Document: Viewed
[2018-12-29 13:03] LABS: ABS Eosinophils 0.2 10^3/ul (0-0.6); ABS Lymphocytes 1.5 10^3/ul (1.0-4.8); ABS Monocytes 0.7 10^3/ul (0-0.8); ABS Neutrophils 6.1 10^3/ul (1.5-7.7); Eosinophil % 2.1 %; Hematocrit 42 % (42-52); Hemoglobin 13.9 g/dL (14.0-18.0); Lymphocyte % 17.7 %; Mean Corpuscular HGB Conc 33 g/dL (31-36); Mean Corpuscular Hemoglobin 30 pg (27-31); Mean Corpuscular Volume 89 fL (80-94); Mean Platelet Volume 8.3 fL (7.4-10.4); Nucleated Red Blood Cells % 0.1; Platelet Count 179 10^3/uL (150-450); Red Blood Count 4.71 10^6 /uL (4.18-5.48); Red Cell Distribution Width 15 % (10-15); White Blood Count 8.5 10^3/uL (3.5-10.8)
--- OUTSIDE RECORDS SUMMARY | 2018-12-29 13:14 | XMS REPORT | Continuity of Care Document ---
:1930 External Reference #:[id number] Author Name Ciara Harris DNP, RN, PAD HAND-BC (transmitted by agent of provider Gaby Finch) Address [address] 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 Onset: 11/05/2010 Neck pain Mitch Rich M.D. Onset: 02/16/2011 Type 2 diabetes mellitus Yanely Borden M.D. Onset: 04/17/2011 Benign essential hypertension Mitch Rich M.D. Onset: 05/17/2011 Pure hypercholesterolemia Mitch Rich M.D. Onset: 05/17/2011 Coronary arteriosclerosis Dada Aguilar M.D. Onset: 06/17/2013 Essential hypertension Dada Aguilar M.D. Onset: 12/25/2014 Benign prostatic hypertrophy without Mitch Rich M.D. Onset: 08/03/2015 outflow obstruction Right bundle branch block and left Sonido Cummings M.D.,FACP Onset: 2017 anterior fascicular block on electrocardiogram Difficulty breathing Ciara Harris DNP, RN, Onset: 06/12/2018 [facility] Hypoxemia Ciara Harris DNP, RN, Onset: 06/12/2018 [facility] Body mass index 30+ - obesity Ciara Harris DNP, RN, Onset: 06/12/2018 [facility] Obstructive sleep apnea syndrome Dada Aguilar M.D. Onset: 12/17/2018 Note: Mild. 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 e-cigarettes, or using chewing tobacco ETOH Use Denies alcohol use Tobacco Use Start: Unknown End: Patient is a former smoked for 2.5 smoker years while in the service Recreational Drug Use Denies Drug Use Smoking Status Reviewed: 12/19/18 Patient is a former smoked for 2.5 smoker years while in the service Exercise Type/Frequency Exercises sporadically walks on occasion, down driveway as often as possible Allergies, Adverse Reactions, Alerts Active Allergies Reaction Severity Comments Date Norvasc nervous anxious 01/09/2007 Hydrocodone vomiting 04/04/2013 Inactive Allergies NKDA 11/16/2004 Toprol XL anxious 01/09/2007 Medications Active Medications SIG Qnty Indications Ordering Date Provider Metoprolol Succinate ER 1/2 by mouth 45tabs Amanda Pryor, 11/22/2018 every day [employer] 25mg Tablets ER 24HR Spironolactone 1/2 by mouth 90tabs I10 Dada Zabala 07/07/2017 25mg Tablets every day Diane Aguilar Nitrostat one sl q5min up 25tabs Amanda Pryor, 04/04/2013 0.4mg Tablets Sub to 3 doses as [employer] needed Flomax 1 po daily 90caps Other Ordering 01/14/2013 0.4mg Capsules Provider Atorvastatin Calcium 1 by mouth every E78.5 Unknown 10mg day Tablets Aspirin Adult Low Dose 1 by mouth every Unknown 81mg day Tablets DR Omeprazole take 1 capsule 90caps Mitch Dalton 20mg Capsules DR by mouth mallika Rich M.D. daily Finasteride 1 tab by mouth Nabeel Romero, 5mg Tablets daily Multivitamins 1 capsule lissy;y 90caps Unknown Capsules Ailyn-Q 1 capsule po qd Unknown Capsules prn Enzyme Digest 1 capsule at Unknown Capsules each meal Prostate Health 1 Capsule Daily Unknown Capsules Vision Formula 1 PO bid Unknown Tablets Cardio Complete 1 Capsule bid Unknown Capsules Calcium 1 PO qd Unknown 230mg Chewtabs Selenium 1 Daily Unknown 100mcg Tablets [place] 3-6-9 Complex 1 Capsule bid Unknown 1605mg Capsules Cranberry 1 po qd Unknown Capsules History Medications Atorvastatin Calcium 1 by mouth every 90tabs E78.5 Amanda Pryor, 2018 - day 12/05/18 pt [employer] 12/10/2018 20mg Tablets taking 1/2 tab daily Medications Administered in Office Medication SIG Qnty Indications Ordering Provider Date Celestone 3 mg and 3mg Jairo Lamar MD 03/03/2017 Injection Immunizations CPT Code Status Date Vaccine Lot # [id number] Given 12/22/2017 Fluzone High Dose 70686 Given 01/04/2017 Influenza Virus Vaccine, Quadrivalent, Split, Preservative Free 14868 Given 02/03/2016 Tdap - Tetanus/Diptheria/Acellular Pertussis [id number] Q2039 Given 11/30/2014 Flu Vaccine NOS 58661 Given 07/29/2014 Pneumococcal Conjugate Vaccine 13 Valent For [id number] Intramuscular Use 19754 Given 12/31/2013 Flu Vaccine Split Virus Preservative Free For [id number] Indiv 3Yr Older 12131 Given 01/04/2013 Flu Vaccine Split Virus Preservative Free For [id number] Indiv 3Yr Older Q2038 Given 12/14/2011 Fluzone Vaccine Q2038 Given 12/14/2011 Fluzone Vaccine [id number] Q2038 Given 12/27/2010 Fluzone Vaccine 50247 Given 12/25/2009 Influenza Virus 3Yrs & Over [id number] 54282 Given 12/18/2007 Influenza Virus 3Yrs & Over 87939 Given 12/18/2007 Influenza Virus 3Yrs & Over 98041 Given 12/29/2006 Influenza Virus 3Yrs & Over 47049 Given 12/29/2006 Influenza Virus 3Yrs & Over 65729 Given 12/29/2006 Influenza Virus 3Yrs & Over 16034 47625 Given 07/14/2005 Td (History By Patient) 56502 Given 11/20/1997 Pneumovax (History By Patient) Vital Signs Date Vital Result Comment 12/19/2018 11:13am Height 67 inches 5'7" Weight 212.25 lb Heart Rate 76 /min BP Systolic Sitting 152 mmHg Rue large cuff BP Diastolic Sitting 76 mmHg Rue large cuff Respiratory Rate 14 /min O2 % BldC Oximetry 98 % On Ra BMI (Body Mass Index) 33.2 kg/m2 12/05/2018 11:05am Height 67 inches 5'7" Heart Rate 76 /min BP Systolic 142 mmHg LA, reg BP Diastolic 84 mmHg LA, reg BP Systolic Sitting 130 mmHg Ra, reg BP Diastolic Sitting 84 mmHg Ra, reg BP Systolic Standing 152 mmHg LA, reg (asymptomatic) BP Diastolic Standing 86 mmHg LA, reg (asymptomatic) Results Test Date Facility Test Result H/L Range Note Laboratory test 11/07/2018 [facility] Point of Care 102 mg/dL High 70-[address] [place] [address] [phone] Basic Metabolic 10/12/2018 [facility] Sodium 141 mmol/L Normal 135-[address] [place] [address] [phone] Potassium 4.5 mmol/L Normal 3.5-5.0 Chloride 107 mmol/L Normal 101-111 Co2 Carbon Dioxide 27 mmol/L Normal 22-32 Anion Gap 7 mmol/L Normal 2-11 Glucose 124 mg/dL High 70-100 Blood Urea Nitrogen 21 mg/dL Normal 6-24 Creatinine 1.33 mg/dL High 0.67-1.17 BUN/Creatinine Ratio 15.8 Normal 8-20 Calcium 9.0 mg/dL Normal 8.6-10.3 Egfr Non- 51.0 >60 Egfr 61.7 >60 2 Lipid Profile 10/12/2018 [facility] Triglycerides 102 mg/dL 3 (Trig/Chol/HDL) [address] [place] [address] [phone] Cholesterol 172 mg/dL 4 HDL Cholesterol 38.1 mg/dL 5 LDL Cholesterol 114 mg/dL 6 Laboratory test 10/12/2018 [facility] Magnesium 2.0 mg/dL Normal 1.9-2.7 [address] [place] [address] [phone] Vitamin B12 And 10/12/2018 [facility] Vitamin B12 439 pg/mL Normal 180-914 8 Folate Serum [address] [place] [address] [phone] Folic Acid (Folate) > 20.00 ng/mL >3.99 9 Urine Microalbumin 08/14/2018 [facility] Ur Microalbumin < 15.0 [address] (mg/L) mg/[place] [address] [phone] Urine Creatinine 100.13 mg/dL Urine Microalbumin/Creatinine TNP <31 11 Laboratory test finding 08/14/2018 [employer] Hemoglobin A1c 6.5 5-7 1 Preforms Laminator: [id number] 2 Because ethnic data is not always readily available, this report includes an eGFR for both -Americans and non- Americans. The National Kidney Disease Education Program (NKDEP) does not endorse the use of the MDRD equation for patients that are not between the ages of 18 and 70, are , have extremes of body size, muscle mass, or nutritional status, or are non- or non-. According to the National Kidney Foundation, irrespective of diagnosis, the stage of the disease is based on the level of kidney function: Stage Description GFR(mL/min/1.73 m(2)) 1 Kidney damage with normal or decreased GFR 90 2 Kidney damage with mild decrease in GFR 60-89 3 Moderate decrease in GFR 30-59 4 Severe decrease in GFR 15-29 5 Kidney failure <15 (or dialysis) 3 Desirable: <150 Borderline High: 150-199 High: 200-499 Very High: >500 4 Desirable: <200 Borderline High: 200-239 High: >239 5 Low: <40 Desirable: 40-60 High: >60 6 Desirable: <100 Near Optimal: 100-129 Borderline High: 130-159 High: 160-189 Very High: >189 7 FASTING 8 Normal Range 180 to 914 Indeterminate Range 145 to 180 Deficient Range <145 9 FASTING 10 [id number] Unable to calculate due to low microalbumin Procedures Date Code Description Status 11/22/2018 31319 Pace Maker Eval W/Iterative Adjment Dual Lead Completed 11/22/2018 13639 Pace Maker Eval W/Iterative Adjment Dual Lead Completed 10/19/2018 [id number] Diabetic Retinal Eye Exam Completed 10/16/2018 [id number] Diabetic Retinal Eye Exam Completed 10/15/2018 42301 EKG Tracing & Interpretation Completed 06/23/2018 63417 Sleep Study Unattended,HRT Rate,Oxygen Sat,Resp Completed Effort/Airflow 02/22/2018 [id number] Diabetic Retinal Eye Exam Completed 07/25/2017 [id number] Diabetic Retinal Eye Exam Completed 12/01/2016 [id number] Diabetic Retinal Eye Exam Completed 11/10/2015 [id number] Diabetic Retinal Eye Exam Completed 09/17/2013 [id number] Diabetic Retinal Eye Exam Completed 08/12/2013 [id number] Colonoscopy Completed 11/06/2012 [id number] Colonoscopy Completed 08/17/2012 [id number] Diabetic Retinal Eye Exam Completed 09/09/2009 [id number] Colonoscopy Completed 07/31/2003 [id number] Colonoscopy Completed Medical Devices Description No Information Available Encounters Type Date Location Provider Dx Diagnosis Office Visit 12/05/2018 [facility] Nurse Visit IC I10 Essential ( primary) 10:00a Of [facility] hypertension Office Visit 11/26/2018 [facility] Amanda Thuman, I10 Essential ( primary) 1:00p [employer] hypertension E78.5 Hyperlipidemia, unspecified I48.0 Paroxysmal atrial fibrillation I25.10 Athscl heart disease of augustine coronary artery w/o ang pctrs Office Visit 11/02/2018 9:00a [facility] Internal Mitch Dalton Z01.810 Encounter for Medicine - Diane Rich preprocedural [facility] cardiovascular examination H26.9 Unspecified cataract I10 Essential (primary) hypertension E11.9 Type 2 diabetes mellitus without complications I25.118 Athscl heart disease of august[place] cor art w oth ang pctrs E78.00 Pure hypercholesterolemia, unspecified G47.33 Obstructive sleep apnea (adult) (pediatric) K21.9 Gastro-esophageal reflux disease without esophagitis N40.0 Benign prostatic hyperplasia without lower urinry tract symp Office Visit 10/15/2018 11:20a [facility] Dada Zabala G47.33 Obstructive sleep Diane Aguilar apnea (adult) (pediatric) E11.9 Type 2 diabetes mellitus without complications I10 Essential (primary) hypertension I25.118 Athscl heart disease of augustine cor art w oth ang pctrs E78.00 Pure hypercholesterolemia, unspecified I49.5 Sick sinus syndrome Office Visit 09/18/2018 [facility] G47.33 Obstructive sleep 1:00p [facility] RN, apnea (adult) [facility] (pediatric) 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 Office Visit 07/31/2018 [facility] G47.33 Obstructive sleep 2:00p [facility] RN, apnea (adult) [facility] (pediatric) R09.02 Hypoxemia Assessments Date Code Description Provider 12/19/2018 G47.33 Obstructive sleep apnea (adult) Ciara Harris DNP, RN, (pediatric) [facility] 12/05/2018 I10 Essential (primary) hypertension Nurse Visit IC 11/26/2018 I10 Essential (primary) hypertension Amanda Pryor NP 11/26/2018 E78.5 Hyperlipidemia, unspecified Amanda Pryor NP 11/26/2018 I48.0 Paroxysmal atrial fibrillation Amanda Pryor NP 11/26/2018 I25.10 Atherosclerotic heart disease of Amanda Pryor NP augustine coronary artery without angina pectoris 11/22/2018 I49.5 Sick sinus syndrome Ica Pacer Schedule 11/22/2018 I44.0 Atrioventricular block, first degree Ica Pacer Schedule 11/22/2018 Z95.0 Presence of cardiac pacemaker Dada Aguilar M.D. 11/22/2018 Z95.0 Presence of cardiac pacemaker Ica Pacer Schedule 11/02/2018 Z01.810 Encounter for preprocedural Mitch Rich M.D. cardiovascular examination 11/02/2018 H26.9 Unspecified cataract Mitch Rich M.D. 11/02/2018 I10 Essential (primary) hypertension Mitch Rich M.D. 11/02/2018 E11.9 Type 2 diabetes mellitus without Mitch Rich M.D. complications 11/02/2018 I25.118 Atherosclerotic heart disease of Mitch Rich M.D. augustine coronary artery with 11/02/2018 E78.00 Pure hypercholesterolemia, Mitch Rich M.D. unspecified 11/02/2018 G47.33 Obstructive sleep apnea (adult) Mitch Rich M.D. (pediatric) 11/02/2018 K21.9 Gastro-esophageal reflux disease Mitch Rich M.D. without esophagitis 11/02/2018 N40.0 Benign prostatic hyperplasia without Mitch Rich M.D. lower urinary tract symptoms 10/15/2018 G47.33 Obstructive sleep apnea (adult) Dada Aguilar M.D. (pediatric) 10/15/2018 E11.9 Type 2 diabetes mellitus without Dada Aguilar M.D. complications 10/15/2018 I10 Essential (primary) hypertension Dada Aguilar M.D. 10/15/2018 I25.118 Atherosclerotic heart disease of Dada Aguilar M.D. augustine coronary artery with 10/15/2018 E78.00 Pure hypercholesterolemia, Dada Aguilar M.D. unspecified 10/15/2018 I49.5 Sick sinus syndrome Dada Aguilar M.D. 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 w/o abnormal findings 08/14/2018 E11.9 Type 2 diabetes mellitus without Mitch Rich M.D. complications 08/14/2018 I10 Essential (primary) hypertension Mitch Rich M.D. 08/14/2018 I25.118 Atherosclerotic heart disease of Mitch Rich M.D. augustine coronary artery with 08/14/2018 I45.2 Bifascicular block Mitch Rich M.D. 08/14/2018 E78.00 Pure hypercholesterolemia, Mitch Rich M.D. unspecified 08/14/2018 K21.9 Gastro-esophageal reflux disease Mitch Rich M.D. without esophagitis 08/14/2018 H61.23 Impacted cerumen, bilateral Mitch Rich M.D. 07/31/2018 G47.33 Obstructive sleep apnea (adult) Ciara Harris DNP, RN, (pediatric) [facility]- 07/31/2018 R09.02 Hypoxemia Ciara Harris DNP, RN, PAD HAND- 06/23/2018 G47.33 Obstructive sleep apnea (adult) Stefania Mcfarlane MD (pediatric) Plan of Treatment Future Appointment(s):06/21/2019 10:30 am - Ciara Harris DNP, RN, [facility]- at [facility]12/21/2018 2:30 pm - Nurse Visit cc at [facility]01/08/2019 1:00 pm - Amanda Pryor NP at [facility]02/25/2019 11:40 am - Mitch Rich M.D. at [facility] Internal Medicine - [facility]12/19/2018 - Ciara Harris DNP, RN, [facility]G47.33 Obstructive sleep apnea (adult) (pediatric)Comments:06/23/18 HST AHI 11.6/hour, enid oxygen 85%On CPAP auto 8-12 AHI 16.2 /hourFollow up:6 monthsRecommendations:Continue PAP device, Benefitting and compliant with treatment. Due to elevated AHI to recommend toincrease min pressure 9 to reduce max pressure to 11 cm Cleaning Wipe off mask daily (baby wipe-no scent, or warm water) Clean mask, tubing, filter, and water chamber weekly in mild no scent dish soapand water. Hang to dry. If you have any sleepiness while driving you MUST avoid operating a vehicle or machinery. If you have difficulty with your equipment, or need to replace your mask or hoses, please contact your homecare agency. A weight change of 20 pounds or more may have an effect on your equipment; if you are experiencing problems please call for an appointment. If you have any further questions, please call the [facility] at [phone]. Functional Status Description No Information Available Mental Status Description No Information Available Referrals Refer to Reason for Referral Status Appt Date Closed Dada Kumar MD Hearing eval increased cerumen Patient Declined [address] [id number] [phone]
--- OUTSIDE RECORDS SUMMARY | 2018-12-29 13:15 | XMS REPORT | Continuity of Care Document ---
:1930 External Reference #:[id number] Author Name Amanda Pryor NP (transmitted by agent of provider Savannah Brown) Address [address] [place] [id number] Care Team Providers Name Role Phone Jairo Lamar MD - Hand Surgery Care Team Information Weigh Tank Operator [phone] [facility] [place] [place] [facility] - Sleep Disorder Care Team Information Weigh Tank Operator Diagnostic Dada Kumar MD - Otolaryngology Care Team Information Weigh Tank Operator [phone] Problems Active Problems Provider Date Low back [...] breathing Ciara Harris DNP, RN, Onset: 06/12/2018 [employer] Hypoxemia Ciara Harris DNP, RN, Onset: 06/12/2018 [facility] Body mass index 30+ - obesity Ciara Harris DNP, RN, Onset: 06/12/2018 [facility] Social History Type Date Description Comments Sex Unknown Tobacco Use End: [birth year] smoked for 3 years 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 e-cigarettes, or using chewing tobacco ETOH Use Denies alcohol use Tobacco Use Start: Unknown End: Patient is a former smoked for 2.5 smoker years while in the service Recreational Drug Use Denies Drug Use Smoking Status Reviewed: 11/26/18 Patient is a former smoked for 2.5 smoker years while in the service Exercise Type/Frequency Exercises sporadically walks on occasion, down driveway as often as possible Allergies, Adverse Reactions, Alerts Active Allergies Reaction Severity Comments Date Norvasc nervous anxious 01/09/2007 Hydrocodone vomiting 04/04/2013 Inactive Allergies NKDA 11/16/2004 Toprol XL anxious 01/09/2007 Medications Active Medications SIG Qnty Indications Ordering Date Provider Atorvastatin Calcium 1 by mouth every 90tabs E78.5 Amanda Pryor, 2018 20mg day GRAIN THRESHER Tablets Metoprolol Succinate ER 1 by mouth every 90tabs Dada Zabala 11/22/2018 day Diane Aguilar 25mg Tablets ER 24HR Spironolactone 1/2 by mouth 90tabs I10 Dada Zabala 07/07/2017 25mg Tablets every day Diane Aguilar Nitrostat one sl q5min up 25tabs Amanda Pryor, 04/04/2013 0.4mg Tablets Sub to 3 doses as GRAIN THRESHER needed Flomax 1 po bid 90caps Other Ordering 01/14/2013 0.4mg Capsules Provider Aspirin Adult Low Dose 1 by mouth [...] Capsule bid Unknown Capsules Calcium 1 PO bid Unknown 230mg Chewtabs Selenium 1 Daily Unknown 100mcg Tablets [place] 3-6-9 Complex 1 Capsule bid Unknown 1605mg Capsules Cranberry 1 po qd Unknown Capsules Medications Administered in Office Medication SIG Qnty Indications Ordering Provider Date Celestone 3 mg and 3mg Jairo Lamar MD 03/03/2017 Injection Immunizations CPT Code Status Date Vaccine Lot # [id number] Given 12/22/2017 Fluzone High Dose 92550 Given 01/04/2017 Influenza Virus Vaccine, Quadrivalent, Split, Preservative Free 23663 Given 02/03/2016 Tdap - Tetanus/Diptheria/Acellular Pertussis [id number] Q2039 Given 11/30/2014 Flu Vaccine NOS 34770 Given 07/29/2014 Pneumococcal Conjugate Vaccine 13 Valent For [id number] Intramuscular Use 22772 Given 12/31/2013 Flu Vaccine Split Virus Preservative Free For [id number] Indiv 3Yr Older 17287 Given 01/04/2013 Flu Vaccine Split Virus Preservative Free For [id number] Indiv 3Yr Older Q2038 Given 12/14/2011 Fluzone Vaccine Q2038 Given 12/14/2011 Fluzone Vaccine [id number] Q2038 Given 12/27/2010 Fluzone Vaccine 04715 Given 12/25/2009 Influenza Virus 3Yrs & Over [id number] 31291 Given 12/18/2007 Influenza Virus 3Yrs & Over 66536 Given 12/18/2007 Influenza Virus 3Yrs & Over 59506 Given 12/29/2006 Influenza Virus 3Yrs & Over 16991 Given 12/29/2006 Influenza Virus 3Yrs & Over 53097 Given 12/29/2006 Influenza Virus 3Yrs & Over [id number] 30126 Given 07/14/2005 Td (History By Patient) 70614 Given 11/20/1997 Pneumovax (History By Patient) Vital Signs Date Vital Result Comment 11/26/2018 12:46pm Height 67 inches 5'7" Weight 213.50 lb with shoes Heart Rate 60 /min left radial BP Systolic Sitting 140 mmHg ule reg cuff BP Diastolic Sitting 90 mmHg ule reg cuff BMI (Body Mass Index) 33.4 kg/m2 Ejection Fraction 55-60% Echo 04/06/18 11/02/2018 9:13am Height 67 inches 5'7" Weight 214.00 lb Heart Rate 52 /min BP Systolic Sitting 144 mmHg BP Diastolic Sitting 81 mmHg O2 % BldC Oximetry 96 % BMI (Body Mass Index) 33.5 kg/m2 Results Test Date Facility Test Result H/L Range Note Laboratory test 11/07/2018 Point of Care 102 mg/dL High 70-100 1 finding 101 [facility] [place] [address] [phone] Basic Metabolic 10/12/2018 Sodium 141 mmol/L Normal 135-145 Panel 101 [place], [place] [id number] [phone] Potassium 4.5 mmol/L Normal 3.5-5.0 Chloride 107 mmol/L Normal 101-111 Co2 Carbon Dioxide 27 mmol/L Normal 22-32 Anion Gap 7 mmol/L Normal 2-11 Glucose 124 mg/dL High 70-100 Blood Urea Nitrogen 21 mg/dL Normal 6-24 Creatinine 1.33 mg/dL High 0.67-1.17 BUN/Creatinine Ratio 15.8 Normal 8-20 Calcium 9.0 mg/dL Normal 8.6-10.3 Egfr Non- 51.0 >60 Egfr 61.7 >60 2 Lipid Profile 10/12/2018 Triglycerides 102 mg/dL 3 (Trig/Chol/HDL) [address] [place] [address] [phone] Cholesterol 172 mg/dL 4 HDL Cholesterol 38.1 mg/dL 5 LDL Cholesterol 114 mg/dL 6 Laboratory test 10/12/2018 Magnesium 2.0 mg/dL Normal 1.9-2.7 7 finding [address] [place] [address] [phone] Vitamin B12 And 10/12/2018 Vitamin B12 439 pg/mL Normal 180-914 8 Folate Serum [address] [place] [address] [phone] Folic Acid (Folate) > 20.00 ng/mL >3.99 9 Urine Microalbumin 08/14/2018 Ur Microalbumin < 15.0 [address] (mg/L) mg/[place] [address] [phone] Urine Creatinine 100.13 mg/dL Urine Microalbumin/Creatinine TNP <31 11 Laboratory test 08/14/2018 [facility] In House Hemoglobin A1c 6.5 5-7 finding CBC Auto Diff 05/31/2018 White Blood 8.0 Normal 3.5 -10.[address] Count 10^3/[place] [address] [phone] Red Blood Count 4.82 10^6/uL Normal 4.18-5.48 Hemoglobin 14.0 g/dL Normal 14.0-18.0 Hematocrit 43 % Normal 36-46 Mean Corpuscular Volume 89 fL Normal 80-94 Mean Corpuscular Hemoglobin 29 pg Normal 27-31 Mean Corpuscular HGB Conc 33 g/dL Normal 31-36 Red Cell Distribution Width 14 % Normal 10.5-15 Platelet Count 225 10^3/uL Normal 150-450 Mean Platelet Volume 7.9 fL Normal 7.4-10.4 Abs Neutrophils 5.8 10^3/uL Normal 1.5-7.7 Abs Lymphocytes 1.4 10^3/uL Normal 1.0-4.8 Abs Monocytes 0.5 10^3/uL Normal 0-0.8 Abs Eosinophils 0.2 10^3/uL Normal 0-0.6 Abs Basophils 0 10^3/uL Normal 0-0.2 Abs Nucleated RBC 0 10^3/uL Granulocyte % 72.1 % Lymphocyte % 17.8 % Monocyte % 6.9 % Eosinophil % 2.6 % Basophil % 0.6 % Nucleated Red Blood Cells % 0 Comp Metabolic 05/31/2018 Sodium 136 mmol/L Normal 135-[address] [place] [address] [phone] Potassium 4.7 mmol/L Normal 3.5-5.0 Chloride 103 mmol/L Normal 101-111 Co2 Carbon Dioxide 27 mmol/L Normal 22-32 Anion Gap 6 mmol/L Normal 2-11 Glucose 138 mg/dL High 70-100 Blood Urea Nitrogen 24 mg/dL Normal 6-24 Creatinine 1.25 mg/dL High 0.67-1.17 BUN/Creatinine Ratio 19.2 Normal 8-20 Calcium 9.2 mg/dL Normal 8.6-10.3 Total Protein 6.9 g/dL Normal 6.4-8.9 Albumin 3.8 g/dL Normal 3.2-5.2 Globulin 3.1 g/dL Normal 2-4 Albumin/Globulin Ratio 1.2 Normal 1-3 Total Bilirubin 0.40 mg/dL Normal 0.2-1.0 Alkaline Phosphatase 74 U/L Normal 34-104 Alt 22 U/L Normal 7-52 Ast 21 U/L Normal 13-39 Egfr Non- 54.8 >60 Egfr 66.3 >60 12 Laboratory test 05/31/2018 Lipase 21 U/L Normal 11.0-82.0 finding [address] [place] [address] [phone] C Reactive Protein 5.24 mg/L Normal <8.01 Lactic Acid 0.9 mmol/L Normal 0.5-2.0 13 Urinalysis Profile 05/31/2018 Urine Color Straw [address] [place] [address] [phone] Urine Appearance Clear Urine Specific [place] 1.006 Low 1.010-1.030 Urine pH 7.0 Normal 5-9 Urine Urobilinogen Negative Negative Urine Ketones Negative Negative Urine Protein Negative Negative Urine Leukocytes Negative Negative Urine Blood Negative Negative * * Abnormal Negative 14 Urine Nitrite Negative Negative Urine Bilirubin Negative Negative Urine Glucose Negative Negative 1 Computer Art Instructor: [id number] 2 Because ethnic data is not always [...] 180 Deficient Range <145 9 FASTING 10 [id number] 11 Unable to calculate due to low microalbumin 12 Because ethnic data is not always readily [...] 15-29 5 Kidney failure <15 (or dialysis) 13 [facility] Severe Sepsis and Septic Shock Management Bundle Measure requires all lactic acids initially measuring >2.0 mmol/L be repeated. 14 *Ascorbic acid is present which may interfere with detection of blood. Procedures Date Code Description Status 11/22/2018 35331 Pace Maker Yancy W/Iterative Adjment Dual Lead Completed 10/19/2018 [id number] Diabetic Retinal Eye Exam Completed 10/16/2018 [id number] Diabetic Retinal Eye Exam Completed 10/15/2018 62247 EKG Tracing & Interpretation Completed 06/23/2018 54572 Sleep Study Unattended,HRT Rate,Oxygen Sat,Resp Completed Effort/Airflow 02/22/2018 [id number] Diabetic Retinal Eye Exam Completed 07/25/2017 [id number] Diabetic Retinal Eye Exam Completed 12/01/2016 [id number] Diabetic Retinal Eye Exam Completed 11/10/2015 [id number] Diabetic Retinal Eye Exam Completed 09/17/2013 [id number] Diabetic Retinal Eye Exam Completed 08/12/2013 [id number] Colonoscopy Completed 11/06/2012 [id number] Colonoscopy Completed 08/17/2012 [id number] Diabetic Retinal Eye Exam Completed 09/09/2009 [id number] Colonoscopy Completed 07/31/2003 [id number] Colonoscopy Completed Medical Devices Description No Information Available Encounters Type Date Location Provider Dx Diagnosis Office Visit 11/02/2018 [facility] Internal Mitch Dalton Z01.810 Encounter for 9:00a Trisha Rich M.D. preprocedural cardiovascular examination H26.9 Unspecified cataract I10 Essential (primary) hypertension E11.9 Type 2 diabetes mellitus without complications I25.118 [place]scl heart disease of [place] cor art [facility] p[facility] E78.00 Pure hypercholesterolemia, unspecified G47.33 Obstructive sleep apnea (adult) (pediatric) K21.9 Gastro-esophageal reflux disease without esophagitis N40.0 Benign prostatic hyperplasia without lower urinry tract symp Office Visit 10/15/2018 11:20a [facility] Dada Zabala G47.33 Obstructive sleep Diane Aguilar apnea (adult) (pediatric) E11.9 Type 2 diabetes mellitus without complications I10 Essential (primary) hypertension I25.118 Athscl heart disease of [place] cor art w [facility] pctrs E78.00 Pure hypercholesterolemia, unspecified I49.5 Sick sinus syndrome Office Visit 09/18/2018 [facility]ara G47.33 Obstructive sleep 1:00p [facility] Harris RN, apnea (adult) [facility]- (pediatric) 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 cardiovascular examination 11/02/2018 H26.9 Unspecified cataract Mitch Rich M.D. 11/02/2018 I10 Essential (primary) hypertension Mitch Rich M.D. 11/02/2018 E11.9 Type 2 diabetes mellitus without Mitch Rich M.D. 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 unspecified 11/02/2018 G47.33 Obstructive sleep apnea [...] Atherosclerotic heart disease of Dada Aguilar M.D. [place] coronary artery with 10/15/2018 E78.00 Pure hypercholesterolemia, Dada Aguilar M.D. unspecified 10/15/2018 I49.5 Sick sinus syndrome Dada Aguilar M.D. 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 w/o abnormal findings 08/14/2018 E11.9 Type 2 diabetes mellitus without Mitch Rich M.D. complications 08/14/2018 I10 Essential (primary) hypertension Mitch Rich M.D. 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 08/14/2018 E78.00 Pure hypercholesterolemia, Mitch Rich M.D. unspecified 08/14/2018 K21.9 Gastro-esophageal reflux disease Mitch Rich M.D. without esophagitis 08/14/2018 H61.23 Impacted cerumen, bilateral Mitch Rich M.D. 07/31/2018 G47.33 Obstructive sleep apnea (adult) Ciara Harris DNP, RN, (pediatric) [facility] 07/31/2018 R09.02 Hypoxemia Ciara Harris DNP, RN, [facility] 06/23/2018 G47.33 Obstructive sleep apnea (adult) Stefania Mcfarlane MD (pediatric) 06/12/2018 R06.83 Snoring Ciara Harris DNP, RN, [facility] 06/12/2018 R09.02 Hypoxemia Ciara Harris DNP, RN, [facility] 06/12/2018 Z68.32 Body mass index (BMI) 32.0-32.9, Ciara Harris DNP, RN, adult [facility] 06/05/2018 I10 Essential (primary) hypertension Mitch Rich M.D. Plan of Treatment Future Appointment(s):01/08/2019 1:00 pm - Amanda Pryor NP at [facility]12/19/2018 11:15 am - Ciara Harris DNP, RN, AUTO BODY REPAIRER [employer]-BC at [facility]02/25/2019 11:40 am - Mitch Rich M.D. at [facility] Internal Medicine - [facility]11/26/2018 - Amanda Pryor, NPI10 Essential (primary) wpprmjxoknvxF12.5 Hyperlipidemia, unspecifiedNew Medication: Atorvastatin Calcium 20 mg - 1 by mouth every dayFollow up:follow up with me Amanda CHOP-BC in 1.5 months Follow up with Dr. Aguilar 8 months.Recommendations:Please increase Lipitor to 2 tablets by mouth daily; please take both tablets before bedtime. When you run out of your current pill ( Lipitor 10mg tablet) please fern picker new prescription and only take (1) tablet at that time because it will be a 20mg tablet. Please call me if you have any questions . Get fasting labs in 6 weeks. (1) week before you seen me.I48.0 Paroxysmal atrial hewesiqadutvO38.10 Atherosclerotic heart disease of [place] coronary artery without angina pectoris Functional Status Description No Information Available Mental Status Description No Information Available Referrals Refer to Reason for Referral Status Appt Date Created Dada Kumar MD Hearing eval increased cerumen Patient Declined [address] [place] [address] [phone]
--- OUTSIDE RECORDS SUMMARY | 2018-12-29 13:15 | XMS REPORT | Continuity of Care Document ---
:1930 External Reference #:[id number] Author Name Lucho Alvarado M.D. Address [address] [place] [address] Care Team Providers Name Role Phone Mitch Rich M.D. - Internal Care Team Information Senior Technical Specialist Medicine Dada Aguilar MD - Cardiovascular Care Team Information Senior Technical Specialist Disease Nabeel Rose M.D. - Urology Care Team Information Senior Technical Specialist [phone] Problems Active Problems Provider Date Seasonal allergy Onset: Gastroesophageal reflux disease Onset: Benign prostatic hyperplasia Onset: Type 2 diabetes mellitus Onset: Essential hypertension Onset: Heart murmur Onset: Arthritis Onset: Ocular hypertension Lucho Alvarado M.D. Onset: 10/13/2014 Disorder of eye with type 2 diabetes mellitus Lucho Alvarado M.D. Onset: Nonproliferative diabetic retinopathy Lucho Alvarado M.D. Onset: 10/13/2014 Nuclear senile cataract Lucho Alvarado M.D. Onset: 10/13/2014 Type 2 diabetes mellitus with mild Lucho Alvarado M.D. Onset: 12/01/2016 nonproliferative diabetic retinopathy without macular edema, bilateral Presence of intraocular lens Lucho Alvarado M.D. Onset: 11/08/2018 Combined form of senile cataract Lucho Alvarado M.D. Onset: 09/01/2017 Bilateral primary open angle glaucoma Lucho Alvarado M.D. Onset: 09/01/2017 Social History Type Date Description Comments Sex Unknown ETOH Use Denies alcohol use Tobacco Use Start: Unknown End: Unknown Patient is a former smoker Recreational Drug Use Denies Drug Use Smoking Status Reviewed: 11/08/18 Patient is a former smoker Allergies, Adverse Reactions, Alerts Active Allergies Reaction Severity Comments Date Norvasc 10/13/2014 Toprol XL 10/13/2014 Hydrocodone 10/13/2014 TobraDex 10/13/2014 Erythromycin 10/13/2014 Medications Active Medications SIG Qnty Indications Ordering Date Provider Ciprofloxacin HCL instill one drop 5ml Lucho Kiran 10/25/2018 0.3% in the right eye Diane Alvarado Solution three times a day, start the day before surgery Ketorolac Tromethamine use one drop in 10ml Lucho Kiran 10/25/2018 the right eye Diane Alvarado 0.5% Solution three times a day, start the day before surgery Prednisolone Acetate 1 drops right 10ml Lucho Kiran 10/25/2018 1% eye three times Diane Alvarado Suspension a day. taper as directed Latanoprost place 1 drop 7.5units H40.1131 Lucho Kiran 09/01/2017 0.005% into both eyes Diane Alvarado Solution at bedtime Vision Formula/Lutein Lucho Kiran 10/12/2014 Diane Alvarado Tablets Spironolactone 1 tab po daily Unknown 25mg Tablets Systane as needed Unknown 0.4-0.3% Solution Multiple Vitamin Unknown Tablets Ailyn-Q Unknown Capsules Enzyme Digest Unknown Capsules Prostate Health Unknown Capsules Cardio Complete Unknown Capsules Selenium Unknown 100mcg Tablets [place] 3-6-9 Complex Unknown Capsules Cranberry Extract Unknown 250mg Tablets Aspirin Adult Low Dose Unknown 81mg Tablets DR Omeprazole Unknown 20mg Capsules DR Finasteride Unknown 5mg Tablets Atorvastatin Calcium Unknown 10mg Tablets Tamsulosin HCL Unknown 0.4mg Capsules Immunizations Description No Information Available Vital Signs Description No Information Available Results Test Date Facility Test Result H/L Range Note Laboratory test 11/07/2018 [facility] Point of Care 102 mg/dL High 70-100 [address] [place] [address] [phone] 1 Butter Melter: [id number] Procedures Date Code Description Status 10/25/2018 85097 Ophthalmic Biometry Completed 10/25/2018 17975 Est Patient Intermediate Exam Completed 10/16/2018 85879 Visual Field Exam Extended Completed 10/16/2018 37555 Est Patient Comprehensive Exam Completed Medical Devices Description No Information Available Encounters Description No Information Available Assessments Date Code Description Provider 11/08/2018 Z96.1 Presence of intraocular lens Lucho Alvarado M.D. 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 mild stage 11/08/2018 E11.9 Type 2 diabetes mellitus without Lucho Alvarado M.D. complications 10/25/2018 H25.811 Combined forms of age-related cataract, Lucho Alvarado M.D. 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 mild stage 10/25/2018 E11.9 Type 2 diabetes mellitus without Lucho Alvarado M.D. complications 10/25/2018 H25.812 Combined forms of age-related Lucho kulkarni M.D. 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 mild stage 10/16/2018 H25.813 Combined forms of age-related cataract, Lucho Alvarado M.D. bilateral 10/16/2018 E11.9 Type 2 diabetes mellitus without Lucho Alvarado M.D. complications Plan of Treatment Future Appointment(s):11/20/2018 11:00 am - Smita Reynolds O.D. at Lucho Alvarado MD, 11/08/2018 - Lucho Alvarado M.D.Z96.1 Presence of intraocular lensComments:Smoking can increase the risk of developing or worsening any eye related disease, as well as affect your overall health. If you are a smoker, we strongly recommend that you quit.If you are not a smoker, we strongly recommend that you do not start. The artifical lens implant in your right eye appearsto be stable. Since this is the first day after surgery, your right eye is still dilated and the vision will still be slightly blurry. The dilation will go down over the next day or two. Continue taking your eye drops as directed on the surgical calendar. If you have any questions, please call [phone] Primary open-angle glaucoma, bilateral, mild stageFollow up: 4 Month Follow Up RA IOP Check At your next visit, we are not planning to dilate your eyes. However, if you have any changes in your vision or new symptoms, there are certain situations that require us to dilate your eyes. If Dr. Alvarado requests any additional testing, that may require extra time. Ifyou have any questions before your next appointment, please call our office at .E11.9 Type 2 diabetes mellitus without complications Functional Status Description No Information Available Mental Status Description No Information Available Referrals Description No Information Available
--- OUTSIDE RECORDS SUMMARY | 2018-12-29 13:15 | XMS REPORT | Continuity of Care Document ---
:1930 External Reference #:[id number] Author Name Smita Reynolds O.D. Address [address] [place] [address] Care Team Providers Name Role Phone Mitch Rich M.D. - Internal Care Team Information [place] Medicine Dada Aguilar MD - Cardiovascular Care Team Information [place] Disease Nabeel Rose M.D. - Urology Care Team Information [place] [phone] Problems Active Problems Provider Date Seasonal allergy [...] Use Denies Drug Use Smoking Status Reviewed: 11/20/18 Patient is a former smoker Allergies, Adverse Reactions, Alerts Active Allergies Reaction Severity Comments Date Norvasc 10/13/2014 Toprol XL 10/13/2014 Hydrocodone 10/13/2014 TobraDex 10/13/2014 Erythromycin 10/13/2014 Medications Active Medications SIG Qnty Indications Ordering Date Provider Ketorolac Tromethamine use one drop in 10ml Lucho Kiran 10/25/2018 the right eye Diane Alvarado 0.5% Solution three times a day, start the day before surgery Prednisolone Acetate 1 drops right 10ml Lucho Kiran 10/25/2018 1% eye three times Diane Alvarado Suspension a day. taper as directed Latanoprost place 1 drop 7.5units H40.1131 Smita Reynolds, 09/01/2017 0.005% into both eyes O.D. Solution at bedtime Vision Formula/Lutein Lucho Kiran 10/12/2014 Diane Alvarado Tablets Spironolactone 1 tab po daily Unknown 25mg Tablets Systane as needed Unknown 0.4-0.3% Solution Multiple Vitamin Unknown Tablets Ailyn-Q Unknown Capsules Enzyme Digest Unknown Capsules Prostate Health Unknown Capsules Cardio Complete Unknown Capsules Selenium Unknown 100mcg Tablets [place] 3-6-9 Complex Unknown Capsules Cranberry Extract Unknown 250mg Tablets Aspirin Adult Low Dose Unknown 81mg Tablets DR Omeprazole Unknown 20mg Capsules DR Finasteride Unknown 5mg Tablets Atorvastatin Calcium Unknown 10mg Tablets Tamsulosin HCL Unknown 0.4mg Capsules History Medications Ciprofloxacin HCL instill one drop 5ml Lucho Alvarado, 10/25/2018 - 0.3% in the right eye M.DJesús 11/19/2018 Solution three times a day, start the day before surgery Immunizations Description No Information Available Vital Signs Description No Information Available Results Test Date Facility Test Result H/L Range Note Laboratory test 11/07/2018 [facility] 102 mg/dL High 70-[address] [place] [address] [phone] 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 mild stage 11/08/2018 Z96.1 Presence of intraocular lens Lucho Alvarado M.D. 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 mild stage 11/08/2018 E11.9 Type 2 diabetes mellitus without Lucho Alvarado M.D. 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 11/07/2018 H40.1111 Primary open-angle glaucoma, right eye, Lucho Alvarado M.D. 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 mild stage 10/25/2018 E11.9 Type 2 diabetes mellitus without Lucho Alvarado M.D. 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 mild stage 10/16/2018 H25.813 Combined forms of age-related cataract, Lucho Alvarado M.D. bilateral 10/16/2018 E11.9 Type 2 diabetes mellitus without Lucho Alvarado M.D. complications Plan of Treatment 11/20/2018 - Smita Reynolds O.D.Z96.1 Presence of intraocular lensComments: Smoking can increase the risk of developing or worsening any eye related disease , as well as affect your overall health. If you are a smoker, we strongly recommend that you quit.If you are not a smoker, we strongly recommend that you do not start. Your lens implant looks stable in your right eye at this time. You should be done, or almost done with your drops at this time according to your surgical calendar. I have given you a prescription for glasses. If you have any questions, please feel free to call our office at .H40.1131 Primary open-angle glaucoma, bilateral, mild stageComments: continue your latanoprost 1 drop both eyes before bedFollow up:6 months IOP check/oct nerve Functional Status Description No Information Available Mental Status Description No Information Available Referrals Description No Information Available
--- OUTSIDE RECORDS SUMMARY | 2018-12-29 13:15 | XMS REPORT | Continuity of Care Document ---
:1930 External Reference #:[id number] Author Name Smita Reynolds O.D. Address [address] [place] [address] Care Team Providers Name Role Phone Mitch Rich M.D. - Internal Care Team Information [place] [phone] Medicine Dada Aguilar MD - Cardiovascular Care Team Information [place] Disease Nabeel Rose M.D. 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 complications Plan of Treatment Future Appointment(s):05/21/2019 11:00 am - Smita Reynolds O.D. at [facility]11/20/2018 - Smita Reynolds O.D.Z96.1 Presence of intraocular lensComments:Smoking can increase the [...] feel free to call our office at .H40.1135 Primary open-angle glaucoma, bilateral, mild stageComments: continue your latanoprost 1 drop both eyes before bedFollow up:6 months IOP check/oct nerve Functional Status Description No Information Available Mental Status Description No Information Available Referrals Description No Information Available
[2018-12-29 13:20] LABS: Albumin 3.9 g/dL (3.2-5.2); Albumin/Globulin Ratio 1.3 (1-3); BUN/Creatinine Ratio 17.4 (8-20); C Reactive Protein 7.88 mg/L (<8.01); Calcium 9.1 mg/dL (8.6-10.3); EGFR African American 68.8 (>60); EGFR Non-African American 56.9 (>60); Globulin 2.9 g/dL (2-4); Magnesium 1.9 mg/dL (1.9-2.7); Potassium 4.3 mmol/L (3.5-5.0); Total Bilirubin 0.6 mg/dL (0.2-1.0); Total Protein 6.8 g/dL (6.4-8.9)
[2018-12-29 13:21] LABS: Troponin I 0.01 ng/mL (<0.04)
[2018-12-29 13:52] LABS: TSH (Thyroid Stimulating Horm) 2.94 mcIU/mL (0.34-5.60)
[2018-12-29 13:56] LABS: Urine Appearance Clear; Urine Bilirubin Negative (Negative); Urine Blood Negative (Negative); Urine Color Yellow; Urine Glucose Negative (Negative); Urine Ketones Negative (Negative); Urine Nitrite Negative (Negative); Urine Protein Negative (Negative); Urine Specific Gravity 1.011 (1.010-1.030); Urine Urobilinogen Negative (Negative)
[2018-12-29 14:32] VITALS: BP 178/85
== END 2018-12-29 14:30 | disposition home or self-care (01) ==
LOC: ED 12:00
DX: R42 Dizziness and giddiness (principal); E78.00 Pure hypercholesterolemia, unspecified; Z87.891 Personal history of nicotine dependence; R73.03 Prediabetes; I25.10 Atherosclerotic heart disease of native coronary artery without angina pectoris; I10 Essential (primary) hypertension; Z95.0 Presence of cardiac pacemaker; K21.9 Gastro-esophageal reflux disease without esophagitis; F41.9 Anxiety disorder, unspecified
CPT/HCPCS: 36415; 70450; 71046; 80053; 81003; 82550; 83605; 83735; 83880; 84443; 84484; 85025; 86140; 93005; 99284; A9270-GY

== ENCOUNTER 2019-10-30 10:23 | Observation (INO) ==
[2019-10-30] MEDS ORDERED: NS 0.9% 1000 ml BAG 1,000 ML IV ONE (10:41)
[2019-10-30] MEDS ORDERED: Ondansetron 4 mg VIAL 2 MG/ML 2 ml VIAL IV ONE (11:00)
[2019-10-30 11:15] LABS: ABS Basophils 0.1 10^3/ul (0-0.2); ABS Eosinophils 0.2 10^3/ul (0-0.6); ABS Lymphocytes 1.9 10^3/ul (1.0-4.8); ABS Monocytes 0.6 10^3/ul (0-0.8); Eosinophil % 2.3 %; Hematocrit 44 % (42-52); Hemoglobin 14.4 g/dL (14.0-18.0); Lymphocyte % 21.9 %; Mean Corpuscular HGB Conc 33 g/dL (31-36); Mean Corpuscular Hemoglobin 30 pg (27-31); Mean Corpuscular Volume 90 fL (80-94); Mean Platelet Volume 8.3 fL (7.4-10.4); Platelet Count 150 10^3/uL (150-450); Red Blood Count 4.84 10^6 /uL (4.18-5.48); Red Cell Distribution Width 15 % (10-15); White Blood Count 8.8 10^3/uL (3.5-10.8)
[2019-10-30 11:32] LABS: Albumin 3.9 g/dL (3.2-5.2); Albumin/Globulin Ratio 1.2 (1-3); BUN/Creatinine Ratio 15.7 (8-20); Calcium 9.1 mg/dL (8.6-10.3); EGFR African American 68.6 (>60); EGFR Non-African American 56.7 (>60); Globulin 3.2 g/dL (2-4); Magnesium 1.8 mg/dL (1.9-2.7); Potassium 4.1 mmol/L (3.5-5.0); Total Bilirubin 0.5 mg/dL (0.2-1.0); Total Protein 7.1 g/dL (6.4-8.9)
[2019-10-30 11:33] LABS: Troponin I 0.01 ng/mL (<0.03)
[2019-10-30 12:02] LABS: TSH Ultra Thyroid Stim Horm 2.41 mcIU/mL (0.34-5.60)
[2019-10-30] MEDS ORDERED: Furosemide 40 mg/4 ml IV VIAL IV ONE (12:22)
[2019-10-30 13:33] LABS: Urine Appearance Clear; Urine Bilirubin Negative (Negative); Urine Blood Negative (Negative); Urine Color Straw; Urine Glucose Negative (Negative); Urine Ketones Negative (Negative); Urine Nitrite Negative (Negative); Urine Protein Negative (Negative); Urine Urobilinogen Negative (Negative)
[2019-10-30 14:03] LABS: C Reactive Protein 14.46 mg/L (<8.01)
[2019-10-30] MEDS ORDERED: Ondansetron 4 mg VIAL 2 MG/ML 2 ml VIAL IV PRN (14:13)
[2019-10-30] MEDS: Latanoprost 0.005% 2.5 ml BTL BOTH EYES SCH (17:19)
[2019-10-30] MEDS: Heparin 5000 UNITS/ML 1 mL VIAL SUBCUT SCH (22:04)
[2019-10-31 05:22] LABS: ABS Basophils 0.1 10^3/ul (0-0.2); ABS Eosinophils 0.3 10^3/ul (0-0.6); ABS Lymphocytes 2.8 10^3/ul (1.0-4.8); ABS Monocytes 0.8 10^3/ul (0-0.8); ABS Neutrophils 6.8 10^3/ul (1.5-7.7); Eosinophil % 2.5 %; Hematocrit 42 % (42-52); Hemoglobin 14.1 g/dL (14.0-18.0); Lymphocyte % 25.7 %; Mean Corpuscular HGB Conc 34 g/dL (31-36); Mean Corpuscular Hemoglobin 30 pg (27-31); Mean Corpuscular Volume 88 fL (80-94); Mean Platelet Volume 8.3 fL (7.4-10.4); Nucleated Red Blood Cells % 0.1; Platelet Count 158 10^3/uL (150-450); Red Blood Count 4.71 10^6 /uL (4.18-5.48); Red Cell Distribution Width 15 % (10-15); White Blood Count 10.8 10^3/uL (3.5-10.8)
[2019-10-31] MEDS: Heparin 5000 UNITS/ML 1 mL VIAL SUBCUT SCH ×3 (05:39→20:37)
[2019-10-31 05:40] LABS: BUN/Creatinine Ratio 17.3 (8-20); Calcium 8.8 mg/dL (8.6-10.3); EGFR Non-African American 40.5 (>60); Potassium 3.6 mmol/L (3.5-5.0)
[2019-10-31] MEDS ORDERED: Magnesium Sulfate 2 gm BAG 2 GM/50 ML BAG IVPB ONE (07:34)
[2019-10-31] MEDS: Aspirin EC 81 mg TAB.EC (enteric coated) PO SCH (08:42)
[2019-10-31] MEDS ORDERED: NS 0.9% 1000 ml BAG 1,000 ML IV SCH (10:30)
[2019-10-31] MEDS: Latanoprost 0.005% 2.5 ml BTL BOTH EYES SCH (18:11)
[2019-11-01] MEDS: Heparin 5000 UNITS/ML 1 mL VIAL SUBCUT SCH ×2 (05:10→13:12)
[2019-11-01 07:25] LABS: BUN/Creatinine Ratio 23.4 (8-20); Calcium 8.8 mg/dL (8.6-10.3); EGFR African American 57.5 (>60); EGFR Non-African American 47.5 (>60); Potassium 4.2 mmol/L (3.5-5.0)
[2019-11-01 07:46] LABS: Folate 12.21 ng/mL (>3.99)
[2019-11-01] MEDS: Aspirin EC 81 mg TAB.EC (enteric coated) PO SCH (07:56)
[2019-11-01 12:44] VITALS: BP 130/82
== END 2019-11-01 15:32 | disposition home or self-care (01) ==
LOC: MEDTELE 10:23 → ED 10:23 → MEDTELE 15:00
PROVIDERS: ADMIT Internal Medicine; ATTEND Internal Medicine

== ENCOUNTER 2021-06-19 18:52 | Inpatient (IN) ==
[2021-06-19 19:34] LABS: ABS Basophils 0.1 10^3/ul (0-0.2); ABS Eosinophils 0.3 10^3/ul (0-0.6); ABS Lymphocytes 1.3 10^3/ul (1.0-4.8); ABS Monocytes 1.1 10^3/ul (0-0.8); ABS Neutrophils 10.4 10^3/ul (1.5-7.7); Eosinophil % 2.2 %; Hematocrit 41 % (42-52); Hemoglobin 13.5 g/dL (14.0-18.0); Lymphocyte % 9.9 %; Mean Corpuscular HGB Conc 33 g/dL (31-36); Mean Corpuscular Hemoglobin 29 pg (27-31); Mean Corpuscular Volume 88 fL (80-94); Mean Platelet Volume 7.7 fL (7.4-10.4); Platelet Count 239 10^3/uL (150-450); Red Blood Count 4.65 10^6 /uL (4.18-5.48); Red Cell Distribution Width 15 % (10-15); White Blood Count 13.2 10^3/uL (3.5-10.8)
[2021-06-19 20:12] LABS: Albumin 3.4 g/dL (3.2-5.2); Albumin/Globulin Ratio 1.1 (1-3); C Reactive Protein 212.43 mg/L (<8.01); Calcium 8.4 mg/dL (8.6-10.3); Globulin 3.1 g/dL (2-4); Potassium 4.7 mmol/L (3.5-5.0); Total Bilirubin 0.3 mg/dL (0.2-1.0); Total Protein 6.5 g/dL (6.4-8.9); eGFR CKD-EPI 40.6 (>60)
[2021-06-19 21:02] LABS: Urine Appearance Cloudy; Urine Bilirubin Negative (Negative); Urine Blood 3+ (Negative); Urine Color Yellow; Urine Glucose 3+(>=500 mg/dL) (Negative); Urine Ketones Negative (Negative); Urine Nitrite Positive (Negative); Urine Protein Negative (Negative); Urine Specific Gravity 1.021 (1.002-1.030); Urine Urobilinogen Negative (Negative)
[2021-06-19 21:10] LABS: Urine Bacteria 1+ (Absent); Urine Red Blood Cell 3+(>10/hpf) (Absent); Urine Squamous Epithelial Cell Present (Absent); Urine White Blood Cell 3+(>20/hpf) (Absent)
[2021-06-20] MEDS ORDERED: Iodixanol (CONTRAST) 320 MG/ML 100 ML SDV IV ONE (01:00)
[2021-06-20] MEDS ORDERED: cefTRIAXone 1 gm/50 mL D5W 1 GM/50 ML BAG IV ONE ×2 (02:29→16:53)
[2021-06-20] MEDS ORDERED: Ondansetron 4 mg VIAL 2 MG/ML 2 ml VIAL IV PRN ×2 (02:59→18:00)
[2021-06-20] MEDS ORDERED: Dextrose 50% Syringe 50 ml 25 GM/50 ML SYRINGE IV PUSH PRN (03:05)
[2021-06-20] MEDS ORDERED: Polyethylene Glycol 3350 17 GM PACKET PO PRN (03:07)
[2021-06-20] MEDS: Lactated Ringers 1000 ml BAG 1,000 ML IV SCH (03:54)
[2021-06-20 06:00] LABS: ABS Basophils 0.1 10^3/ul (0-0.2); ABS Eosinophils 0.3 10^3/ul (0-0.6); ABS Lymphocytes 1.5 10^3/ul (1.0-4.8); ABS Monocytes 1.3 10^3/ul (0-0.8); ABS Neutrophils 11.1 10^3/ul (1.5-7.7); Eosinophil % 1.8 %; Hematocrit 41 % (42-52); Hemoglobin 13.5 g/dL (14.0-18.0); Lymphocyte % 10.9 %; Mean Corpuscular HGB Conc 33 g/dL (31-36); Mean Corpuscular Hemoglobin 29 pg (27-31); Mean Corpuscular Volume 88 fL (80-94); Mean Platelet Volume 7.9 fL (7.4-10.4); Platelet Count 239 10^3/uL (150-450); Red Blood Count 4.67 10^6 /uL (4.18-5.48); Red Cell Distribution Width 15 % (10-15); White Blood Count 14.2 10^3/uL (3.5-10.8)
[2021-06-20 06:17] LABS: Albumin 3.2 g/dL (3.2-5.2); Calcium 8.1 mg/dL (8.6-10.3); Direct Bilirubin 0.1 mg/dL (0.03-0.18); Globulin 3.1 g/dL (2-4); Indirect Bilirubin 0.4 mg/dL (0.3-1.0); Potassium 4.8 mmol/L (3.5-5.0); Total Bilirubin 0.5 mg/dL (0.2-1.0); Total Protein 6.3 g/dL (6.4-8.9); eGFR CKD-EPI 46.1 (>60)
[2021-06-20] MEDS: CMC:OMEGA-3 FATTY ACID 1000 mg(NF) PO SCH ×2 (09:14→20:30)
[2021-06-20] MEDS: Vitamin THERAPEUTIC TAB PO SCH (09:15)
[2021-06-20] MEDS: Multivitamins/Minera Areds(NF) CAP PO SCH ×2 (09:16→20:31)
[2021-06-20] MEDS: Heparin 5000 UNITS/ML 1 mL VIAL SUBCUT SCH ×2 (12:30→20:29)
[2021-06-20] MEDS ORDERED: Ketamine HCL 50 mg/ml 10 ml VIAL (500 MG) ONE (16:02)
[2021-06-20] MEDS ORDERED: Ondansetron 4 mg VIAL 2 MG/ML 2 ml VIAL ONE (16:02)
[2021-06-20] MEDS ORDERED: fentaNYL 100 mcg/2 ml 50 MCG/ML VIAL ONE (16:02)
[2021-06-20] MEDS ORDERED: Propofol 10 MG/ML 20 ML BTL ONE (16:02)
[2021-06-20] MEDS ORDERED: Lidocaine 2% PF 5 ML VIAL ONE (16:02)
[2021-06-20] MEDS ORDERED: Iohexol 180 (CONTRAST) 10 ML SDV IV ONE (16:19)
[2021-06-20] MEDS ORDERED: Naloxone 0.4 mg VIAL 0.4 mg/ml 1 ml VIAL IV PRN (18:00)
[2021-06-20] MEDS ORDERED: Acetaminophen IV 1 GM/100ML 100 ML IV PRN (18:00)
[2021-06-20] MEDS ORDERED: fentaNYL 100 mcg/2 ml 50 MCG/ML VIAL IV PRN (18:00)
[2021-06-20] MEDS ORDERED: Midazolam 2 mg/2 ml VIAL 1 mg/ml 2 ml VIAL (2 mg) ONE (21:41)
[2021-06-20] MEDS: Morphine 2 MG/ML SYRINGE IV PRN (22:42)
[2021-06-21] MEDS: Lactated Ringers 1000 ml BAG 1,000 ML IV SCH ×2 (01:14→15:29)
[2021-06-21] MEDS: cefTRIAXone 1 gm/50 mL D5W 1 GM/50 ML BAG IV SCH (02:51)
[2021-06-21] MEDS: Heparin 5000 UNITS/ML 1 mL VIAL SUBCUT SCH ×3 (04:39→21:53)
[2021-06-21] MEDS: Morphine 2 MG/ML SYRINGE IV PRN ×4 (06:04→23:43)
[2021-06-21 06:51] LABS: ABS Eosinophils 0.3 10^3/ul (0-0.6); ABS Lymphocytes 1.4 10^3/ul (1.0-4.8); ABS Monocytes 1.1 10^3/ul (0-0.8); ABS Neutrophils 8.9 10^3/ul (1.5-7.7); Eosinophil % 2.7 %; Hematocrit 38 % (42-52); Hemoglobin 12.5 g/dL (14.0-18.0); Lymphocyte % 12.2 %; Mean Corpuscular HGB Conc 33 g/dL (31-36); Mean Corpuscular Hemoglobin 29 pg (27-31); Mean Corpuscular Volume 88 fL (80-94); Mean Platelet Volume 7.7 fL (7.4-10.4); Platelet Count 224 10^3/uL (150-450); Red Blood Count 4.34 10^6 /uL (4.18-5.48); Red Cell Distribution Width 14 % (10-15); White Blood Count 11.7 10^3/uL (3.5-10.8)
[2021-06-21 07:44] LABS: C Reactive Protein 184.74 mg/L (<8.01); Calcium 7.9 mg/dL (8.6-10.3); Potassium 4.8 mmol/L (3.5-5.0); eGFR CKD-EPI 46.8 (>60)
[2021-06-21] MEDS: CMC:OMEGA-3 FATTY ACID 1000 mg(NF) PO SCH ×2 (08:52→21:53)
[2021-06-21] MEDS: Vitamin THERAPEUTIC TAB PO SCH (08:52)
[2021-06-21] MEDS: Multivitamins/Minera Areds(NF) CAP PO SCH ×2 (08:53→21:54)
[2021-06-21] MEDS: Lidocaine 2% JELLY 6 ML TOPICAL SCH ×2 (17:21→21:53)
[2021-06-22] MEDS: cefTRIAXone 1 gm/50 mL D5W 1 GM/50 ML BAG IV SCH (02:10)
[2021-06-22] MEDS: Morphine 2 MG/ML SYRINGE IV PRN ×2 (03:04→05:46)
[2021-06-22] MEDS: Heparin 5000 UNITS/ML 1 mL VIAL SUBCUT SCH ×3 (05:01→21:20)
[2021-06-22 06:04] LABS: ABS Eosinophils 0.4 10^3/ul (0-0.6); ABS Lymphocytes 1.5 10^3/ul (1.0-4.8); ABS Monocytes 0.9 10^3/ul (0-0.8); ABS Neutrophils 7.7 10^3/ul (1.5-7.7); Eosinophil % 3.5 %; Hematocrit 39 % (42-52); Hemoglobin 12.9 g/dL (14.0-18.0); Mean Corpuscular HGB Conc 33 g/dL (31-36); Mean Corpuscular Hemoglobin 29 pg (27-31); Mean Corpuscular Volume 88 fL (80-94); Mean Platelet Volume 7.9 fL (7.4-10.4); Nucleated Red Blood Cells % 0.1; Platelet Count 200 10^3/uL (150-450); Red Blood Count 4.41 10^6 /uL (4.18-5.48); Red Cell Distribution Width 14 % (10-15); White Blood Count 10.5 10^3/uL (3.5-10.8)
[2021-06-22 06:28] LABS: C Reactive Protein 166.5 mg/L (<8.01); Calcium 7.9 mg/dL (8.6-10.3); Potassium 4.5 mmol/L (3.5-5.0); eGFR CKD-EPI 51.6 (>60)
[2021-06-22] MEDS: Multivitamins/Minera Areds(NF) CAP PO SCH ×2 (08:00→21:21)
[2021-06-22] MEDS: Vitamin THERAPEUTIC TAB PO SCH (08:09)
[2021-06-22] MEDS: CMC:OMEGA-3 FATTY ACID 1000 mg(NF) PO SCH ×2 (08:10→21:20)
[2021-06-22] MEDS: Lidocaine 2% JELLY 6 ML TOPICAL SCH ×3 (08:11→21:21)
[2021-06-22] MEDS: Lactated Ringers 1000 ml BAG 1,000 ML IV SCH (09:36)
[2021-06-22] MEDS ORDERED: NS 0.9% 1000 ml BAG 1,000 ML IV ONE (10:14)
[2021-06-22 10:36] LABS: PCO2 Arterial 36 mmHg (35-45); PO2 Arterial 144 mmHg (80-100)
[2021-06-22 10:49] LABS: ABS Basophils 0.1 10^3/ul (0-0.2); ABS Eosinophils 0.4 10^3/ul (0-0.6); ABS Lymphocytes 1.6 10^3/ul (1.0-4.8); ABS Monocytes 0.9 10^3/ul (0-0.8); ABS Neutrophils 8.1 10^3/ul (1.5-7.7); Eosinophil % 3.6 %; Hematocrit 38 % (42-52); Hemoglobin 12.5 g/dL (14.0-18.0); Lymphocyte % 14.5 %; Mean Corpuscular HGB Conc 33 g/dL (31-36); Mean Corpuscular Hemoglobin 29 pg (27-31); Mean Corpuscular Volume 87 fL (80-94); Mean Platelet Volume 7.5 fL (7.4-10.4); Platelet Count 235 10^3/uL (150-450); Red Blood Count 4.35 10^6 /uL (4.18-5.48); Red Cell Distribution Width 15 % (10-15); White Blood Count 11.2 10^3/uL (3.5-10.8)
[2021-06-22 11:30] LABS: Albumin 2.8 g/dL (3.2-5.2)
[2021-06-22 11:33] LABS: Calcium 7.5 mg/dL (8.6-10.3); Potassium 4.2 mmol/L (3.5-5.0); Total Bilirubin 0.4 mg/dL (0.2-1.0)
[2021-06-22 11:35] LABS: Albumin/Globulin Ratio 1.1 (1-3); Globulin 2.6 g/dL (2-4); Total Protein 5.4 g/dL (6.4-8.9)
[2021-06-22 11:38] LABS: eGFR CKD-EPI 45.7 (>60)
[2021-06-22] MEDS ORDERED: Lactated Ringers 1000 ml BAG 1,000 ML IV SCH ×2 (14:00→19:00)
[2021-06-23] MEDS ORDERED: cefTRIAXone 1 gm/50 mL D5W 1 GM/50 ML BAG IV ONE (03:00)
[2021-06-23] MEDS: Heparin 5000 UNITS/ML 1 mL VIAL SUBCUT SCH (06:23)
[2021-06-23 06:27] LABS: ABS Eosinophils 0.3 10^3/ul (0-0.6); ABS Lymphocytes 1.3 10^3/ul (1.0-4.8); ABS Monocytes 0.8 10^3/ul (0-0.8); ABS Neutrophils 6.5 10^3/ul (1.5-7.7); Eosinophil % 3.5 %; Hematocrit 36 % (42-52); Hemoglobin 11.9 g/dL (14.0-18.0); Lymphocyte % 14.1 %; Mean Corpuscular HGB Conc 33 g/dL (31-36); Mean Corpuscular Hemoglobin 29 pg (27-31); Mean Corpuscular Volume 87 fL (80-94); Mean Platelet Volume 7.7 fL (7.4-10.4); Platelet Count 209 10^3/uL (150-450); Red Blood Count 4.16 10^6 /uL (4.18-5.48); Red Cell Distribution Width 15 % (10-15); White Blood Count 8.9 10^3/uL (3.5-10.8)
[2021-06-23 06:58] LABS: Calcium 7.8 mg/dL (8.6-10.3); Potassium 4.4 mmol/L (3.5-5.0); eGFR CKD-EPI 51.6 (>60)
[2021-06-23] MEDS: Lidocaine 2% JELLY 6 ML TOPICAL SCH ×2 (09:14→12:26)
[2021-06-23] MEDS: CMC:OMEGA-3 FATTY ACID 1000 mg(NF) PO SCH (09:16)
[2021-06-23] MEDS: Vitamin THERAPEUTIC TAB PO SCH (09:17)
[2021-06-23] MEDS: Multivitamins/Minera Areds(NF) CAP PO SCH (10:32)
[2021-06-23 11:41] VITALS: BP 110/62
== END 2021-06-23 13:45 | disposition home health service (06) | DRG 71 ==
LOC: ED 18:52 → EDHOLD 06-20 03:38 → SUATTDRO 06-20 03:38 → MED 06-20 05:23
PROVIDERS: ADMIT Internal Medicine; ATTEND Internal Medicine